=== PATIENT | female | born 1955 | race Caucasian/White ===

== ENCOUNTER 2025-03-01 12:58 | Outpatient (AMB) | payer MEDICARE, MEDICAID, SELFPAY ==
--- NOTE | 2025-03-01 13:09 | A.OFFVIS_ITS ---
Intake Visit Reasons: 2 month Allergies hydrochlorothiazide Allergy (Verified 02/24/25 19:20) Unknown Penicillins Allergy (Verified 02/24/25 19:20) Unknown sulfur dioxide Allergy (Verified 02/24/25 19:20) Unknown trazodone Allergy (Verified 02/24/25 19:20) Unknown Medication List - Last Reconciled 03/01/25 by Olayinka Chadwick MD aspirin 81 mg PO DAILY atorvastatin 40 mg PO DAILY calcium carbonate 600 mg PO Q12H ezetimibe 10 mg PO DAILY fluticasone propionate 50 mcg/actuation 2 sprays intranasal DAILY furosemide 20 mg PO DAILY memantine (Namenda) 5 mg PO ONCE 30 days metoprolol succinate ER 100 mg PO DAILY omeprazole 20 mg PO QAM potassium chloride ER 10 mEq PO DAILY sertraline 25 mg PO DAILY HPI Comments Details: 69 yo RH woman with HTN, HLD, depression, h/o alcohol abuse, and left breast cancer?is here for cognitive issues. She used to drink heavy amoun of beer until 2017 when it started to affect her liver and she stopped drinking it. Around same time, she was also treated for depression. Since then she has been forgetful. She was haivng nausea and abdominal discomfort with donepezil. She also saw an eye doctor and was diagnosed with cataract. [facility] Medical History (Updated 03/01/25 @ 13:17 by Olayinka Chadwick MD) Depression GERD (gastroesophageal reflux disease) Insomnia Hypertension HLD (hyperlipidemia) Alzheimer disease MCI (mild cognitive impairment) Anxiety Cerebral microvascular disease Migraine Encephalopathy Review of Systems Const Details: She is having nausea and abodminal discomfort Physical Exam Neuro Other: Mental Status: Alert and oriented to person, place, and time. Normal attention. Cranial Nerves: CN II: Visual ramos full to confrontation, visual acuity intact. CN III, IV, : Pupils equal, round, reactive to light and accommodation. Extraocular movements are normal. CN V: Facial sensation is normal. CN VII: Facial movements symmetrical. CN VIII: Hearing intact to bedside conversation is normal. CN IX, X: Palate elevates symmetrically. CN XI: Shoulder shrug and head turn symmetrical. CN XII: Tongue midline without atrophy or fasciculations. Coordination: Jkrinm-op-piaz and aoww-gd-uzox testing normal. No dysmetria. Gait and Station: With a walker Sensory: Intact to light touch, pinprick, and vibration. Romberg is negative. Extrapyramidal: Full facial expressions and blinking. No rigidity. Movements are appropriate with no tremor or abnormality. Speech: Normal; no dysarthria or tremor. Assessment & Plan Assessment & Plan (1) Alzheimer dementia: Code(s): G30.9 - Alzheimer's disease, unspecified; F02.80 - Dementia in other diseases classified elsewhere, unspecified severity, without behavioral disturbance, psychotic disturbance, mood disturbance, and anxiety Category: Medical Qualifiers: Alzheimer's disease onset: late onset Dementia severity: mild Dementia behavioral or psychological symptom: with anxiety Qualified Code(s): G30.1 - Alzheimer's disease with late onset; F02.A4 - Dementia in other diseases classified elsewhere, mild, with anxiety Plan Will DC donepezil due to side effects and start mematine. Medications: New memantine (Namenda) 5 mg PO ONCE 30 tabs 0RF 30 days Coding Level of Care Code Est Pt Level 4 (71706) Diagnoses Mild late onset Alzheimer's dementia with anxiety G30.1; F02.A4 Alzheimer's disease onset: late onset Dementia severity: mild Dementia behavioral or psychological symptom: with anxiety
--- OUTSIDE RECORDS SUMMARY | 2025-03-01 13:25 | XMS_ITS | Clinical Summary ---
Author Organization [facility] Address [address] [place] [address] Care Team Providers Care Storm Window Installer Name Role Phone Omaira Mix MD Primary Care Provider [phone] Allergies Active Allergy Reactions Criticality Noted Date Comments Trazodone 03/06/2022 Per pcp pre-op Irbesartan-Hydrochlorothiazide 03/06 Per pcp Penicillins 03/06/2022 Per pcp-preop Sulfa Antibiotics 03/06/2022 Per pcp pre-op Medications Medication Sig Dispensed Refills Start Date End Date Status metoprolol succinate (TOPROL-XL) 24 hr tablet 50 mg Take 50 mg by mouth daily. 0 Active fluticasone (FLONASE) 50 MCG/ACT nasal spray spray/apply 1 spray in each nostril daily. 0 Active omeprazole (PriLOSEC) 20 MG capsule Take 20 mg by mouth daily. 0 Active atorvastatin (LIPITOR) tablet 40 mg Take 40 mg by mouth daily. 0 Active Cholecalciferol 50 MCG (2000 UT) TABS Take by mouth. 0 Ac tive furosemide (LASIX) 20 MG tablet Take 20 mg by mouth 2 (two) times a day. 0 Active lactulose (CHRONULAC) 10 GM/15ML solution Take by mouth. 0 Acti ve mirtazapine (REMERON) 7.5 MG tablet Take 7.5 mg by mouth every night at bedtime. 0 Active potassium chloride ER (K-DUR,KLOR-CON) tablet 10 mEq Take 10 mEq by mouth 2 (two) times a day. 0 Active oxyCODONE (ROXICODONE) 5 MG immediate release tablet Take 1 tablet (5 mg total) by mouth every 8 (eight) hours as needed for pain. 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, estrogen receptor positive 08/09/2020 Family History Medical History Relation Name Comments Cancer Brother Cancer Father Cancer Mother Relation Name Status Comments Brother Father Mother Social History Tobacco Use Types Packs/Day Years Used Date Smoking Tobacco: Every Day Smokeless Tobacco: Never Tobacco Cessation:Ready to Q uit: Not Asked; Counseling Given: Not Answered Sex and Gender Information Value Date Recorded Sex Assigned at Not on file Gender Identity Not on file Sexual Orientation Not on file Job Start Date Occupation Industry Not on file Not on file Not on file Last Filed Vital Signs Vital Sign Reading Time Taken Comments Blood Pressure 154/72 10/18/2021 10:42 AM EST Pulse 57 10/18/2021 10:42 AM EST Temperature 36.9 C (98.4 F) 10/18/2021 10:42 AM EST Respiratory Rate - - Oxygen Saturation 100% 10/18/2021 10:42 AM EST Inhaled Oxygen Concentration - - Weight 66.7 kg (147 lb) 06/26/2022 2:13 PM EDT Height 172.7 cm (5' 8 ) 06/26/2022 2:13 PM EDT Body Mass Index 22.35 06/26/2022 2:13 PM EDT Plan of Treatment Health Maintenance Due Date Last Done Comments Hepatitis C Screening 1955 COVID-19 Vaccine (#1) 1960 Depression Screening 1967 Preventative Health Evaluation 1973 Tobacco Cessation Counseling 1973 Colon Cancer Screening (Colonoscopy) 2000 Breast Cancer Screening (Mammogram) 2005 Pneumococcal Vaccine (2 of 2 - PPSV23 or PCV20) 09/09/2015 07/15/2015 Fall Risk Assessment 2020 Osteoporosis Screening (DEXA Scan) 2020 Influenza Vaccine (#1) 2025 2, 06/27/2022, 07/04/2019, Additional history exists DTap / Tdap / Td (2 - Td or Tdap) 12/18/2027 12/17/2017, 07/05/2009, 07/05/2009 RSV Adult > 60+ Yrs or (1 - 1-dose 75+ series) 2030 Shingrix-Zoster Vaccine Completed 11/15/2022, 06/27 Hepatitis B Vaccines Aged Out No long er eligible based on patient's age to complete this topic RSV Ped < 20 months Aged Out No longe r eligible based on patient's age to complete this topic Care Teams Storm Window Installer Relationship Specialty Start Date End Date Omaira Mix MD PCP - General Internal Medicine 12/20/21
--- OUTSIDE RECORDS SUMMARY | 2025-03-01 13:26 | XMS_ITS | Continuity of Care Document ---
Author Organization [facility] [address] [place] [address] Phone [phone] Care Team Providers Care Paratransit Operator Name Role Phone Елена Mix M.D. Care Team Information Professor Of Counseling [phone] Problems Active Problems Provider Date Hypercholesterolemia Seymour Olivarez M.D. Onset : 06/18/2022 Osteoarthritis Seymour Olivarez M.D. Onset: Anxiety Seymour Olivarez M.D. Onset: Asymptomatic coronary heart disease Seymour acosta M.D. Onset: 06/18/2022 Hyperparathyroidism Seymour Olivarez M.D. Onset: 06/18/2022 Social History Type Date Description Comments Sex Female Sex Unknown ETOH Use Currently consumes alcohol Tobacco Use Start: Unknown End: Unknown Patient is a former smoker Allergies and adverse reactions Active Allergies Criticality Reaction Severity Comments Date Trazodone Unable to assess criticality 06/18/2022 Penicillin Unable to assess criticality 06/18/2022 Sulfamethoxazole Unable to assess criticality 06/18/2022 Hydrochlorothiazide Unable to assess criticality 06/18/2022 Medications Active Medications SIG Qnty Indications Order ing Provider Date Vitamin [id number] (1999 Ut) Chewtabs one qd Seymour Olivarez M.D. 06/19/2023 Calcium 600 High [id number] Tablets Seymour eid M.D. 06/19/2023 [id number] Tablets Take 1 tablet daily Unknown Potassium Chloride [id number] Tablets ER Take 1 Tablet (10 Meq Total) By Mouth 1 (One) Time Each Day DO Not Crush, Chew, Unknown Mirtazapine7.5mg Tablets Take 1 Tablet By Mouth Everyday AT Bedtime Елена Mix M.D. Atorvastatin Jkvhmuf87ef Tablets Take 1 Tablet By Mouth Every Day Unknown Metoprolol Succinate [id number] Tablets ER 24HR Take 1 Tablet By Mouth Every Day Unknown Rydjwgzluw84oi Tablets Take 1 tablet daily Naina Randall MD Ciclopirox8% Solution Apply To The Affected Toenails & Surrounding Area Daily. Remove With Alchohol Ev Елена Mix M.D. Miycpxsrjo74kw Capsules DR Take 1 Capsule By Mouth Every Morning (Before Breakfast) Naina Randall MD Fluticasone Zwrnoizytx33mtn/Act Suspension [place] 2 Sprays Into Each Nostril Every Day Елена Mix M.D. Vital Signs Date Vital Result Comment 06/19/2023 11:02am BP Systolic 132 mmHg BP Diastolic 60 mmHg Heart Rate 70 /min Height 68.5 inches 5'8.50 Weight 150.38 lb BMI (Body Mass Index) 22.5 kg/m2 Results Test Acquired Date Facility Test Result H/L Range N ote Calcium 06/14/2023 [facility] Calcium 9.3 mg/dL (8.6-10.5 ) 25Oh Vitamin D 06/14/2023 [facility] 25Oh Vitamin D 47.6 NG/ML (20-50) PTH, Intact 06/14/2023 [facility] PTH, Intact 63 pg/mL (15-65) 25Oh Vitamin D 12/20/2022 [facility] 25Oh Vitamin D 45.8 NG/ML (20-50) PTH, Intact 12/14/2022 [facility] PTH, Intact 85 pg/mL High (15-65) Basic Metabolic Panel 12/14/2022 [facility] Glucose 94 mg/dL (70-99) BUN 14 mg/dL (8-23) Creatinine 1.1 mg/dL High (0.5-1.0) Sodium 141 mmol/L (133-145) Potassium 4.2 mmol/L (3.6-5.2) Chloride 103 mmol/L (98-107) Bicarbonate 27 mmol/L (22-29) Anion Gap 11 (4-17) Calcium 9.7 mg/dL (8.6-10.5 ) Estimated GFR Creatinine 55 ML/MIN/1.7 3M2 1 Period & Volume 06/15/2022 [facility] Urine Collection Period 24 HRS Volume 2000 MLS Aasjh-Uw-Pqual 06/15/2022 [facility] Creatinine, Urine MG/DL 38.9 mg/dL Creatinine Ur GM/24HR 0.8 GM/24HR (0.72-1.5 ) Wevsukz-Zc-Teo nt 06/15/2022 [facility] Calcium, Urine, MG/DL 2.2 mg/dL Calcium, Urine GM/24HR 0.04 GM/24HR Low (0.05-0.3 0) PTH, Intact 06/13/2022 [facility] PTH, Intact 73 pg/mL High (15-65) Albumin 06/13/2022 [facility] Albumin 4.6 GM/DL (3.4-4.8) Calcium 06/13/2022 [facility] Calcium 9.6 mg/dL (8.6-10.5 ) 1 Creatinine based est imated glomerular filtration (eGFR) in adults is calculated using the [employer] recommended 2020 CKD-EPI equation. Estimates GFR from serum creatinine, age and sex. Medical Devices Description No Information Available Encounters Type Date Location Provider Dx Diagnosis Office Visit 06/19/2023 11:15a Main Office Seymour Olivarez M.D. I25.89 Other forms of chronic ischemic heart disease M19.90 Unspecified osteoart hritis, unspecified site E78.00 Pure hypercholestero lemia, unspecified Assessments Date Code Description Provider 06/19/2023 I25.89 Asymptomatic coronary heart disease Seymour Olivarez M.D. 06/19/2023 M19.90 Osteoarthritis Seymour schmidt M.D. 06/19/2023 E78.00 Hypercholesterolemia Seymour pastrana M.D. Plan of Treatment No Information Available Functional Status Description No Information Available Mental Status Description No Information Available Referrals Description No Information Available
--- OUTSIDE RECORDS SUMMARY | 2025-03-01 13:26 | XMS_ITS | Data Portability ---
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 Suggest excisional bx [email or web address] Not available 01/27/2024 13:53:30 03/16/2024 03/16/2024 No evidence of pre cancerous change. 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 Need to avoid cinnamon and artificial flavorings like sodium iman sulfate in toothpaste. I will prescribe some topical steroid paste to use when you have a flare up. 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 No discrete lesions are present today. She also notes intermittent issues with nasal crusting. She does saline twice a day which seems to have helped as there is no crusting or irritation today. 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 No discrete lesions are present today. She also notes intermittent issues with nasal crusting. She does saline twice a day which seems to have helped as there is no crusting or irritation today. She can do it up to 4 times daily and K-Y jelly in the nose at night pee Not available 10/19/2024 13:11:20 Plan of Treatment Reminders Order Date Submit Date Provider Last Modified By Organization Details Last Modified Time Details Appointments None recorded. Lab unlisted lab - JUAN+anca 2023 [place] [facility] (Centralized Electronic Ordering - All Locations), Patient Can Go To The Location Of Their Choice, [address] 16:08:58 Referral None recorded. Procedures None recorded. Surgeries excision, lesion of tongue (SURG) 2023 9 Not available 14:10:53 Imaging None recorded. Medication Orders triamcinolo ne acetonide 0.1 % dental paste 2023 [place] [id number], [address] [place], [address], 12:56:34 Patient TargetsNo targets recorded. Patient InstructionsNo instructions recorded. Reason for Referral None Reported. Results Created Date Observation Date Name Description Value Unit Range Abnormal Flag Note LastModifiedBy Organization Detail LastModifiedTime 06/17/2006/18/2024 JUAN+A NCA JUAN, serum 35 U/L 14-82 Not Available [facility] ([facility]) [address] [place], [address], 06/19/2024 16:08:58 06/17/2006/19/2024 JUAN+A NCA cytoplasmic (C-anca) <1:20 titer neg:<1 :20 Not Available [facility] ([facility]) [address] [place], [address], 06/19/2024 16:08:58 06/17/20 24 06/19/2024 JUAN+A NCA perinuclear (P-anca) <1:20 titer neg:<1 :20 The prese nce of posit rhianna fluor escen ce exhib iting P-ANC A or C-ANC A patte rns alone is not speci fic for the diagn osis of Wegen er's Granu lomat osis (WG) or micro scopi c polya ngiit is. Decis ions about treat ment shoul d not be based solel y on ANCA IFA resul ts. The Inter natio nal [employer] Conse nsus recom mends follo w up testi ng of posit rhianna sera with both WY-3 and MPO-A NCA enzym e immun oassa ys. As many as 5% serum sampl es are posit rhianna only by EIA. Ref. AM J Clin Patho l 1999; 111:5 07-51 3. Not Available [facility] ([facility]) [address] [facility], [place], [address], 06/19/2024 16:08:58 06/17/20 24 06/19/2024 JUAN+A NCA atypical panca <1:20 titer neg:<1 :20 The atypi taran pANCA patte rn has been obser mello in a signi fican t perce ntage of patie nts with ulcer ative colit is, prima ry scler osing chola ngiti s and autoi mmune hepat itis. Not Available [facility] ([facility]) [address] [place], [address], 06/19/2024 16:08:58 04/15/20 24 08/17/2019 imagi ng/di agnos tic resul t No observ ation record ed. [email or web address] Not Available 01:57:34 Result Notes None recorded. 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 506980169 Active 2017 Neoplasm of uncertain behavior of other specified sites of the oral cavity; Note: Date Diagnosed : 05/13/2018 10:41 AM (D37.09) Not Available [facility] 4 03:12:42 Chronic pharyngit is 013102 Active 2017 Chronic sore throat; Note: Date Diagnosed : 04/04/2018 3:07 PM (J31.2) Not Available [facility] 4 03:12:43 History of neoplasm 277871796 Active 2017 Personal history of other benign neoplasm; Note: Date Diagnosed : 07/02/2018 11:59 AM (Z86.018) Not Available [facility] 4 03:12:43 Tobacco user 048626269 Active 2017 Tobacco use; Note: Date Diagnosed : 07/02/2018 12:18 PM (Z72.0) Not Available [facility] 4 03:12:42 Lesion of oral mucosa 36035456087 64783 Active 2018 Other lesions of oral mucosa; Note: Date Diagnosed : 9 5:17 PM (K13.79) Not Available [facility] 4 03:12:42 Bilateral temporoma ndibular joint pain 93683572826 643783 Active 2019 Arthralgi a of bilateral temporoma ndibular joint; Note: Date Diagnosed : 08/03/2020 11:25 AM (M26.623) Not Available [facility] 4 03:12:44 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 939665328 Active 2017 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, unspecifi ed; Note: Date Diagnosed : 04/04/2018 4:56 PM (D37.9) Not Available [facility] 4 03:12:43 Neoplasm of uncertain behavior of tongue 07714744 Active 2023 NELIA ALARCON MD [address] [place] [address], [facility], [address] , [place] - [facility] 4 13:52:29 Leukoplak ia of tongue 43496356 Active 2023 NELIA ALARCON MD [address] [facility] [place] [address], [place], [address] , [place] - [facility] 4 13:52:35 Feeling of lump in throat 148489924 Active 2023 NELIA ALARCON MD [address] [facility],[place] [address], [place], [address] , [place] - [facility] 4 13:52:41 Oral lichen planus 758195266 Active 2023 MD Sanaz HILLIARD [facility],[place] [address], [place], [address] , [place] - [facility] 4 11:09:13 Chronic rhinitis 33876909 Active 2023 NELIA ALARCON MD [address] [facility],[place] [address], [place], [address] , [place] - [facility] 4 11:10:18 Deviated nasal septum 879195705 Active 2023 NELIA ALARCON MD [address] [facility],[place] [address], [place], [address] , [place] - [facility] 4 13:09:38 Oral lichenoid mucositis 418501725 Active 2023 NELIA ALARCON MD [address] [facility],[place] [address], [place], [address] , [place] - [facility] 4 13:09:49 Abnormal auditory perceptio n 42275896 Active 2024 NELIA ALARCON MD [address] [facility],[address], [place], [address] , [place] - [facility] 5 13:11:35 Problem Notes None recorded. Procedures Surgical History Date Name Laterality Status Provider Name and Address Organization Details Recorded Time 07/16/20 24 EXCISION, LESION OF TONGUE (SURG) completed Dank Brannon [place] - [facility] 03/13/2024 08:47:21 01/27/20 24 Fiberoptic Laryngoscopy (Comprehensive) completed NELIA BARRETT MD [address] [place] [address], [address], [place] - [facility] 01/27/2024 13:52:12 Imaging Results None recorded. Procedure Notes None recorded. Medical Equipment None Reported. Allergies Allergen ID Allergen Name Allergen Category Reaction Reaction Severity Criticality Documentation Date Start Date Code Code System Note Provider Name and Address Organization Details Recorded Time [id number] trazodone medicatio n other Not available Not available 01/07/2024 81455 RxNorm React ion: unkno wn, unspe cifie d;; Not Available [facility] 4 01:14:41 703601 hydrochlo rothiazid e medicatio n other Not available Not available 01/07/2024 5487 RxNorm React ion: unkno wn, unspe cifie d;; Not Available [facility] 4 01:14:42 919213 penicilli n V potassium medicatio n other Not available Not available 01/07/2024 36457 5 RxNorm React ion: unkno wn, unspe cifie d;; Not Available [facility] 4 01:14:43 596237 Substance with sulfonami de structure and antibacte rial mechanism of action (substanc e) medicatio n other Not available Not available 01/07/2024 95539 8003 SNOMED React ion: unkno wn, unspe cifie d;; Not Available [facility] 4 01:14:44 Medications Name Sig Start Date Stop Date Status Note LastModified by Organization Details LastModified Time atorvasta tin 40 mg tablet TAKE 1 TABLET BY MOUTH EVERY DAY active Not Available Not Available No t Available nicotine 14 mg/24 hr daily transderm al patch 10/09 completed Medicati on ID: [id number] D uration Value: 28 Reason: () Brand Name: nicotine Send Method: E-Prescr ibed Sub s Allowed: subs OK Speci al Instruct ion: APPLY 1 PATCH TO SKIN EVERY DAY Medi cationGe nericNam e: nicotine Not Available Not Available Not Available clindamyc in HCl 300 mg capsule TAKE 2 TABS ONE HOUR PRIOR TO DENTAL PROCEDUR E 06/17 completed Not Available Not Available Not Available azithromy debora 250 mg tablet TAKE 2 TABLETS BY MOUTH DAILY FOR 3 DAYS. 06/17 completed Not Available Not Available Not Available nystatin 100,000 unit/gram topical ointment APPLY TO AFFECTED AREA TWICE A DAY active Not Available Not Available No t Available ondansetr on HCl 4 mg tablet 06/17 completed Medicati on ID: [id number] B rand Name: ondanset cain HCl Send Method: E-Prescr ibed Sub s Allowed: subs OK Medic ationGen ericName : ondanset cain HCl Not Available Not Available Not Available metoprolo l succinate ER 100 mg tablet,ex tended release 24 hr TAKE 1 TABLET BY MOUTH EVERY DAY active Not Available Not Available No t Available potassium chloride ER 10 mEq tablet,ex tended release TAKE 1 TABLET (10 MEQ TOTAL) BY MOUTH 1 (ONE) TIME EACH DAY DO NOT CRUSH, CHEW, OR SPLIT. active Not Available Not Available No t Available aspirin 81 mg tablet,de layed release TAKE 1 TABLET BY MOUTH EVERY DAY active Not Available Not Available No t Available doxycycli ne monohydra te 100 mg tablet TAKE 1 TABLET BY MOUTH EVERY 12 HOURS FOR 7 DAYS 06/17 completed Not Available Not Available Not Available tramadol 50 mg tablet 1 tablet by mouth 06/17 completed Medicati on ID: [id number] D uration Value: 4 Prescri bed By Name: Milind Ruiz nd Name: tramadol Send Method: E-Prescr ibed Sub s Allowed: subs OK Medic ationGen ericName : tramadol Not Available Not Available Not Available acetamino phen 500 mg tablet TAKE 1 TABLET BY MOUTH EVERY 6 HOURS NEEDED FOR MILD PAIN (PAIN SCALE 1-3) 06/17 completed Not Available Not Available Not Available ciclopiro x 8 % topical solution 06/20 completed Medicati on ID: [id number] B rand Name: ciclopir ox Send Method: E-Prescr ibed Sub s Allowed: subs OK Medic ationGen ericName : ciclopir ox Not Available Not Available Not Available calcium 600 mg (as calcium carbonate 1,500 mg) tablet TAKE 1 TABLET BY MOUTH EVERY 12 HOURS active Not Available Not Available No t Available triamcino lone acetonide 0.1 % dental paste TAKE 1 APPLICAT ION EVERY DAY BY DENTAL ROUTE FOR 5 DAYS. 06/17 completed Not Available Not Available Not Available cephalexi n 500 mg capsule TAKE 1 CAPSULE BY MOUTH FOUR TIMES A DAY FOR 10 DAYS 06/17 completed Not Available Not Available Not Available ibuprofen 400 mg tablet TAKE 1 TABLET BY MOUTH EVERY 6 HOURS NEEDED FOR MODERATE PAIN (PAIN SCALE 4-6) 06/17 completed Not Available Not Available Not Available omeprazol e 20 mg capsule,d elayed release TAKE 1 CAPSULE BY MOUTH EVERY DAY IN THE MORNING BEFORE BREAKFAS T active Not Available Not Available No t Available Banophen 25 mg capsule 06/20 completed Medicati on ID: [id number] D uration Value: 30 Brand Name: Banophen Send Method: E-Prescr ibed Sub s Allowed: subs OK Speci al Instruct ion: TAKE 1 TABLET BY MOUTH AT BEDTIME NEEDED FOR ITCHING OR SLEEP. M edicakevan Rosaseneric Name: Banophen Not Available Not Available Not Available mupirocin 2 % topical ointment PLACE NICKEL THICK AMOUNT ON WOUND ONCE A DAY BEFORE DRESSING THE TOE WITH BANDAID active Not Available Not Available No t Available furosemid e 20 mg tablet TAKE 1 TABLET BY MOUTH EVERY DAY active Not Available Not Available No t Available albuterol sulfate HFA 90 mcg/actua tion aerosol inhaler INHALE 2 PUFFS INTO THE LUNGS EVERY 4 HOURS NEEDED FOR COUGH, WHEEZING OR SHORTNES S OF BREATH. active Not Available Not Available No t Available fluticaso ne propionat e 50 mcg/actua tion nasal spray,daniela pension SPRAY 2 SPRAYS BY NASAL ROUTE DAILY active Not Available Not Available No t Available ezetimibe 10 mg tablet TAKE 1 TABLET BY MOUTH EVERY DAY active Not Available Not Available No t Available Klor-Con M20 mEq tablet,ex tended release 06/20 completed Medicati on ID: [id number] D uration Value: 30 Brand Name: Klor-Con M20 Send Method: E-Prescr ibed Sub s Allowed: subs OK Speci al Instruct ion: TAKE 1 TABLET BY MOUTH ONCE A DAY Medi cationGe nericNam e: Klor-Con M20 Not Available Not Available Not Available mirtazapi ne 7.5 mg tablet TAKE 1 TABLET BY MOUTH EVERYDAY AT BEDTIME active Not Available Not Available No t Available lactulose 10 gram/15 mL oral solution TAKE 15 ML BY MOUTH DAILY active Not Available Not Available No t Available Chantix Continuin g Month Box 1 mg tablet 10/09 completed Medicati on ID: [id number] D uration Value: 28 Reason: () Brand Name: Chantix Continui ng Box Send Method: E-Prescr ibed Sub s Allowed: subs OK Medic ationGen ericName : Chantix Continui ng Box Not Available Not Available Not Available Vitals Date Recorded Body height Body mass index (BMI) Body weight Provider Name and Address Organization Details Last Updated DateTime 10/19/2024 172.72 cm 22 kg/m2 51695.89 g Obi Monique [place] - [facility] 10/19/2024 12:51:54 Date Recorded Body height Body mass index (BMI) Body weight Provider Name and Address Organization Details Last Updated DateTime 01/27/2024 172.72 cm 22.8 kg/m2 61536.86 g Gianluca Laura [place] - [facility] 01/27/2024 13:09:32 Date Recorded Body height Body mass index (BMI) Body weight Provider Name and Address Organization Details Last Updated DateTime 03/16/2024 172.72 cm 22.2 kg/m2 15234.49 g Gianluca Laura [place] - [facility] 03/16/2024 10:53:08 Date Recorded Body height Body weight Provider Name and Address Organization Details Last Updated DateTime 06/17/2024 172.72 cm 19973.89 g Mackenzie Key [place] [facility] 06/17/2024 12:55:28 Social History None recorded. Functional Status None recorded. Mental Status None recorded. Family History Nothing Reported. Medical History Condition Response Allergies/Hayfever Y Anxiety Y Cancer Y Depression Y High Cholesterol Y GERD/Reflux Y Sleep Disorder Y Gynecological HistoryNo gynecological history recorded. Obstetrics History GPAL:G 0 P 0 0 0 0 Past Encounters Encounter ID Performer Location Encounter Start Date Encounter Closed Date Diagnosis/Indication Diagnosis SNOMED-CT Code Diagnosis ICD10 Code Diagnosis Note [id number] NELIA ALARCON MD [facility] [address] [address] 01/27/2024 12:54:12 01/27/2024 14:01:47 Neoplasm of uncertain behavior of tongue 79264708 D37.02 Leukoplakia of tongue 91 827344 K13.21 Feeling of lump in throat 539041787 R09.89 [id number] NELIA ALARCON MD [facility] [address] [address] 03/16/2024 10:37:12 03/16/2024 11:14:51 Oral lichen planus 732689238 L43.8 Chronic rhinitis 8433208 6 J31.0 Use saline 3 times daily [id number] NELIA ALARCON MD [facility] [address] [address] 06/17/2024 12:46:18 06/17/2024 13:13:05 Deviated nasal septum 986201427 J34.2 Chronic rhinitis 3923374 6 J31.0 Use saline 3-4 times daily and KY jelly at night. Check vasculitis labs Oral liche noid mucositis 563609454 K12.39 [id number] NELIA ALARCON MD [facility] [address] [address] 10/19/2024 12:46:49 10/19/2024 13:15:49 Deviated nasal septum 541626886 J34.2 Chronic rhinitis 7532091 6 J31.0 Use saline 3-4 times daily and KY jelly at night. Oral liche noid mucositis 221931804 K12.39 Abnormal a uditory perception 91678359 H93.299 At this point I cannot explain why she has this popping sensation in her left ear when she taps the right occiput. I suspect this is some type of muscular or neurologic issue. Sometimes patients with migraine have hemicrania l cliffvit y. She will discuss this further with the neurologis t. She feels her hearing is fine but [facility] Health Concerns Section Related Observation LastModified by Organization Detai ls LastModified Time None Recorded Concern Status LastModified by Organization Details LastModified Time None Recorded Advance Directives Directive None Recorded Payers Insurance Date Sequence Insurance Name Policy Number Policy Delgado Covered Member ID Delgado Member ID Guarantor Name 10/14/2024 1 [place]ICARE B-[place]: [employer] Destinee Marroquin [id number] Destinee Marroquin 10/14/2024 2 [place] [facility] Destinee Marroquin [id number] Destinee Marroquin Notes Date Note Type Note Provider Name and Address Organization Details Recorded Time 01/27/2024 text/html hx of leukoplaki a and moid dysplasia left lateral tongue. Dentist concerned. Feel mucous in her throat. No otalgia. No weight loss NELIA BARRETT MD [address] [facility],[address], [address], [facility] 01/27/2024 13:55:56 03/16/2024 text/html path benign, Travis al irritation from ETT. Mouth healing NELIA BARRETT MD [address] [place] [address],[place] [address], [place], [address], [facility] 03/16/2024 11:14:13 06/17/2024 text/html Hx of lichenoid mucositis. She has been using preparations that do not have sodium lauryl sulfate and has been rinsing her mouth with baking soda and water. She does not have any discrete concerns about any areas in her mouth. She feels her nose is more congested and crusty. She has stopped using fluticasone nasal spray NELIA BARRETT MD [address] [facility],[address], [address], [facility] 06/17/2024 13:12:09 10/19/2024 text/html Reports long standing left ear sensitivity when she taps the right occiput. Has not mentioned this previously. Scheduled to see neurologist for this and memory problems. Feels combing hair causes popping in her ear. Hx of leukoplakia. no new lesionsStill smoking 08/29-08/27 ppd NELIA BARRETT MD [address] [facility],[place] [address], [place], [address], [place] - [facility] 10/19/2024 14:37:38 OBGyn Episode No OBEpisode recorded.
--- OUTSIDE RECORDS SUMMARY | 2025-03-01 13:26 | XMS_ITS | Clinical Summary ---
Author Organization [facility] Address [address] [facility] [address] [place] [address] Phone Care Team Providers Care Precipitator Supervisor Name Role Phone Omaira Mix MD Primary Care Provider [phone] Allergies Active Allergy Reactions Criticality Noted Date Comments Hydrochlorothiazide Other (see comments) 01/15/2021 Iodinated Contrast Media Other (see comments) 01/15/2021 Penicillin G 11/16/2021 Other reaction(s): HIVES SOB SWELLING Penicillins Other (see comments) 01/15/2021 Sulfa Antibiotics 12/19/2012 Other reaction(s): HIVES SOB SWELLING Trazodone Other (see comments) 01/15/2021 Medications aspirin (ST GEOVANNY) 81 MG EC tablet Take 1 tablet by mouth 1 (one) time each day Active atorvastatin (LIPITOR) 40 MG tablet Take 1 tablet by mouth 1 (one) time each day Active Cholecalciferol 50 MCG (2000 UT) capsule Take 1 capsule by mouth 1 (one) time each day Active furosemide (LASIX) 20 MG tablet 1 tablet 1 (one) time each day Active lactulose (CHRONULAC) 10 GM/15ML solution Take 0.5 oz by mouth Active mirtazapine (REMERON) 7.5 MG tablet Take 7.5 mg by mouth 1 (one) time each day in the evening 10/08/2020 Active omeprazole (PriLOSEC) [address] capsule Take 1 capsule by mouth 1 (one) time each day 03/15/2021 Active fluticasone (FLONASE) 50 MCG/ACT nasal spray SPRAY 2 SPRAYS INTO EACH NOSTRIL EVERY DAY 11/24/2020 Active ezetimibe (ZETIA) 10 MG tablet Take 10 mg by mouth 1 (one) time each day 10/30/2021 Active metoprolol succinate XL (TOPROL-XL) 100 MG 24 hr tablet 11/15/2021 Act rhianna potassium chloride 10 MEQ CR tablet TAKE 1 TABLET (10 MEQ TOTAL) BY MOUTH 1 (ONE) TIME EACH DAY DO NOT CRUSH, CHEW, OR SPLIT. 30 tablet 11 06/18/2024 5 Active Active Problems Problem Noted Date Diagnosed Date Chronic kidney disease, stage 2 (mild) 2 Hypertensive chronic kidney disease 07/05/2022 Diverticulosis of colon 11/16/2021 Abnormal findings on diagnostic imaging of breas t 11/16/2021 Acute nontraumatic kidney injury 01/15/2021 Stage 3a chronic kidney disease 01/15/2021 Edema 01/15/2021 Hypertensive disorder 01/15/2021 Hypervolemia 01/15/2021 Hypokalemia 01/15/2021 Hypomagnesemia 01/15/2021 Hyponatremia 01/15/2021 Tobacco dependence syndrome 01/15/2021 Malignant neoplasm of overlapping sites of breas t 08/09/2020 Overview (05/26/2024): Replacing diagnoses that were inactivated after the 05/26/24 Regulatory Import H/O: liver disease 04/30/2019 Alcohol abuse 02/21/2017 Hepatic encephalopathy 02/21/2017 Obese class I 07/03/2013 Old myocardial infarction 07/03/2013 Overview (11/16/2021): January 2009, [facility] in [place]. Dr Goins (sp?) Coronary arteriosclerosis 06/03/2013 Diverticular disease 06/03/2013 Mixed anxiety and depressive disorder 06/03/2013 Overview (11/16/2021): [facility]: Dr David Sandoval, psych. Daniela Barron, therapist Obstructive sleep apnea syndrome 06/03/2013 Overview (11/16/2021): On CPAP Right coronary artery occlusion 06/03/2013 Smoker 06/03/2013 Malignant tumor of breast 03/29/2011 Overview (11/16/2021): S/P left mastectomy 2010. Nncology: Dr. Armstrong . Surgeon: Invasive ductal carcinoma History of polyp of colon 09/29/2008 Hypercholesterolemia 02/10/2008 Resolved Problems Problem Noted Date Diagnosed Date Resolved Date Hypertensive chronic kidney disease stage 3 03/17/2021 07/05/2022 Encounters Date Type Department Care Team Description 02/15/2025 Orders Only [facility] [address] [facility] [address] [place] [address] Magdy Starkey MD Chronic kidney disease, stage 4 (severe) (HCC) (Primary Dx); Anemia in chronic kidney disease; Hyperkalemia; Hypertension from Last 3 Months Immunizations Immunization Administration Dates Next Due H1N1 Inj 08/23/2009 Influenza TIV (IM) 07/04/2019, 8,07/15/2015,09/25/2013 ,07/02/2011,08/23/2009 Influenza Whole 07/02/2011 Moderna SARS-COV-2 07/07/2021,12/09/2020, 021 Pneumococcal Conjugate 13-Valent 07/15/2015 Td 07/05/2009 Td, Unspecified 07/05/2009 Tdap 12/17/2017 Family History Medical History Relation Comments Cancer Father Kidney disease Father Cancer Mother Diabetes Mother Heart disease Mother Hypertension Mother Kidney disease Sibling Relation Status Comments Father Mother Sibling Social History Tobacco Use Types Packs/Day Years Used Date Smoking Tobacco: Every Day Cigarettes Started: 03/18/2020 Smokeless Tobacco: Never Tobacco Cessation:Counseling Given: No Alcohol Use Standard Drinks/Week Comments Yes 0 (1 standard drink = 0.6 oz pure alcohol) Alcoholic Drinks/day: 1-2 drinks per day Comments Unknown Sex and Gender Information Value Date Recorded Sex Assigned at Not on file Legal Sex Female 4:49 PM EST Gender Identity Not on file Sexual Orientation Not on file Last Filed Vital Signs Vital Sign Reading Time Taken Comments Blood Pressure 131/65 03/05/2024 1:38 PM EDT Pulse 74 03/05/2024 1:38 PM EDT Temperature - - Respiratory Rate - - Oxygen Saturation 98% 11/16/2021 1:42 PM EDT Inhaled Oxygen Concentration - - Weight 68.7 kg (151 lb 6.4 oz) 03/05/2024 1:38 P M EDT Height 174 cm (5' 8.5 ) 03/17/2021 10:46 AM EDT Body Mass Index 22.69 03/17/2021 10:46 AM EDT Plan of Treatment Upcoming Encounters Date Type Department Care Team (Late st Contact Info) Description 03/04/2025 1:30 PM EDT Office Visit [facility] [address] [place] [phone] Magdy Starkey MD [address] [phone] Health Maintenance Due Date Last Done Comments Breast Cancer Screening 1955 Colorectal Cancer Screening: Annual FOBT 2004 Colorectal Cancer Screening: Colonoscopy 2004 Colorectal Cancer Screening: Sigmoidoscopy 2004 Hepatitis B Vaccine (1 of 3 - Risk 3-dose series) 2015 Pneumococcal Vaccine: 50+ Ye ars (2 of 2 - PPSV23, PCV20, or PCV21) 09/09/2015 07/15/2015 Influenza Vaccine (#1) 2025 4, 06/11/2023, 06/27/2022, Additional history exists Pneumococcal Vaccine: Peds ( 0 to 5 Years) and At-Risk Patients (6 to 49 Years) Discontinued 07/15/2015 Procedures Procedure Name Priority Date/Time Associated Diagnosis Comments RENAL FUNCTION PANEL Routine 02/27/2025 8:22 AM EDT FERRITIN Routine 02/27/2025 8:22 AM EDT Chronic kidney disease, stage 4 (severe) (HCC) Anemia in chronic kidney disease Hyperkalemia Hypertension IRON PANEL (FE, TIBC, TSAT) Routine 02/27/2025 8:22 AM EDT Chronic kidney disease, stage 4 (severe) (HCC) Anemia in chronic kidney disease Hyperkalemia Hypertension CBC AND DIFFERENTIAL Routine 02/27/2025 8:22 AM EDT Chronic kidney disease, stage 4 (severe) (HCC) Anemia in chronic kidney disease Hyperkalemia Hypertension PROTEIN / CREATININE RATIO, URINE Routine 02/27/2025 8:22 AM EDT Chronic kidney disease, stage 4 (severe) (HCC) Anemia in chronic kidney disease Hyperkalemia Hypertension COMPREHENSIVE METABOLIC PANEL Routine 02/27/2025 8:22 AM EDT Chronic kidney disease, stage 4 (severe) (HCC) Anemia in chronic kidney disease Hyperkalemia Hypertension from Last 3 Months Results * Iron Panel (Fe, TIBC, TSAT) (02/27/2025 8:22 AM EDT) TIBC 343 250 - 450 ug/dL [facility] UIBC 264 118 - 369 ug/dL [facility] Iron 79 27 - 139 ug/dL [facility] Iron Saturation (TSat) 23 15 - 55 % [facility] Blood Venous blood / Unknown 02/27/2025 8:22 AM EDT 02/27/2025 us Magdy Starkey MD LAB BLOOD ORDERABLES Final Resu lt [facility] [address] [place] [address] * (ABNORMAL) Protein, Total, Random Urine w/Creatinine (Protein/Creat Ratio) (02/27/2025 8:22 AM EDT) Creatinine, Ur 33.9 Not Estab. mg/dL [facility] Protein, Ur 14.8 Not Estab. mg/dL [facility] Urine Protein/Creati nine Ratio 437(H) 0 - 200 mg/g creat [facility] Urine Urine specimen obtained by clean catch procedure / Unknown 02/27/2025 8:22 AM EDT 02/27/2025 us Magdy Starkey MD LAB URINE ORDERABLES Final Resu lt [facility] [address] [place] [address] * (ABNORMAL) CBC and Differential (02/27/2025 8:22 AM EDT) WBC 13.2(H) 3.4 - 10.8 x10E3/uL [facility] RBC 4.10 3.77 - 5.28 x10E6/uL [facility] Hemoglobin 12.8 11.1 - 15.9 g/dL [facility] Hematocrit 41.5 34.0 - 46.6 % [facility] MCV 101(H) 79 - 97 fL [facility] MCH 31.2 26.6 - 33.0 pg [facility] MCHC 30.8(L) 31.5 - 35.7 g/dL [facility] RDW 12.2 11.7 - 15.4 % [facility] Platelets 203 150 - 450 x10E3/uL [facility] Neutrophils Relative 81 Not Estab. % [facility] Lymphocytes Relative 15 Not Estab. % [facility] Monocytes 4 Not Estab. % [facility] Eosinophils Relative 0 Not Estab. % [facility] Basophils Relative 0 Not Estab. % [facility] Neutrophils Absolute 10.6(H) 1.4 - 7.0 x10E3/uL [facility] Lymphocytes Absolute 2.0 0.7 - 3.1 x10E3/uL [facility] Monocytes Absolute 0.5 0.1 - 0.9 x10E3/uL [facility] Eosinophils Absolute 0.0 0.0 - 0.4 x10E3/uL [facility] Basophils Absolute 0.0 0.0 - 0.2 x10E3/uL [facility] Immature Granulocytes 0 Not Estab. % [facility] Immature Grans (Absolute) 0.0 0.0 - 0.1 x10E3/uL [facility] Blood Venous blood / Unknown 02/27/2025 8:22 AM EDT 02/27/2025 Magdy Starkey MD LAB BLOOD ORDERABLES Final Resu lt [facility] [address] [place] [address] * Ferritin (02/27/2025 8:22 AM EDT) Ferritin 20 15 - 150 ng/mL [facility] Blood Venous blood / Unknown 02/27/2025 8:22 AM EDT 02/27/2025 Magdy Starkey MD LAB BLOOD ORDERABLES Final Resu lt [facility] [address] [place] [address] * Renal Function Panel (02/27/2025 8:22 AM EDT) Phosphorus 3.4 3.0 - 4.3 mg/dL [facility] 02/27/2025 8:22 AM EDT 02/27/2025 us Magdy Starkey MD LAB BLOOD ORDERABLES [facility] [address] [place] [address] * Comprehensive Metabolic Panel (02/27/2025 8:22 AM EDT) Glucose 93 70 - 99 mg/dL [facility] BUN 15 8 - 27 mg/dL [facility] Creatinine 0.97 0.57 - 1.00 mg/dL [facility] eGFR CKD-EPI CR 2020 63 >59 mL/min/1.7 3 [facility] BUN/Creatinine Ratio 15 12 - 28 [facility] Sodium 141 134 - 144 mmol/L [facility] Potassium 4.2 3.5 - 5.2 mmol/L [facility] Chloride 103 96 - 106 mmol/L [facility] Bicarbonate (CO2) 23 20 - 29 mmol/L [facility] Calcium 9.5 8.7 - 10.3 mg/dL [facility] Total Protein 6.3 6.0 - 8.5 g/dL [facility] Albumin 4.1 3.9 - 4.9 g/dL [facility] Globulin 2.2 1.5 - 4.5 g/dL [facility] Total Bilirubin 0.4 0.0 - 1.2 mg/dL [facility] Alkaline Phosphatase 72 44 - 121 IU/L [facility] AST (SGOT) 19 0 - 40 IU/L [facility] ALT (SGPT) 13 0 - 32 IU/L [facility] Blood Venous blood / Unknown 02/27/2025 8:22 AM EDT 02/27/2025 us Magdy Starkey MD LAB BLOOD ORDERABLES Final Resu lt [facility] [address] [place] [address] from Last 3 Months Insurance Medicare Medicaid [place] Care Teams Precipitator Supervisor Relationship Specialty Start Date End Date Omaira Mix MD PCP - General Internal Medicine 07/05/22
--- OUTSIDE RECORDS SUMMARY | 2025-03-01 13:26 | XMS_ITS | Encounter Summary ---
Author Organization [facility] Address [address] [facility] [address] h [address] [place] [id number] Care Team Providers Care Business Process Specialist Name Role Phone Ramona Quispe Unassigned Primary Care Provider U navailable Encounter Details Date Type Department Care Team (Latest Contact Info) Description 08/22/2020 Abstract [facility] CONVERSIONS Dental, Provider, DDS Social History Tobacco Use Types Packs/Day Years Used Date Smoking Tobacco: Never Assessed Comments Unknown Sex and Gender Information Value Date Recorded Sex Assigned at Female 06/25/2022 10:35 AM EDT Legal Sex Female 10:35 AM EDT Gender Identity Female 12/13/2022 10:43 AM EDT Sexual Orientation Choose not to disclose 2022 10:43 AM EDT documented as of this encounter Plan of Treatment Upcoming Encounters Date Type Department Care Team (Late st Contact Info) Description 04/21/2025 11:00 AM EDT Office Visit [facility] [address] [place] [address] Kayleigh Sun documented as of this encounter Visit Diagnoses Not on filedocumented in this encounter Care Teams Business Process Specialist Relationship Specialty Start Date End Date Ramona Quispe Unassigned PCP - General Family Medicine 12/24/22 documented as of this encounter
--- OUTSIDE RECORDS SUMMARY | 2025-03-01 13:26 | XMS_ITS | Clinical Summary ---
Author Organization [address] [place] [address] [place] [phone] Phone Care Team Providers Care In Home Baby Sitter Name Role Phone Omaira Mix MD Primary Care Provider Allergies Active Allergy Reactions Criticality Noted Date Comments Hydrochlorothiazide Other,Rash Low 12/19/2012 Other reaction(s): Other (see comments) Penicillins Other,Shortness of breath High 12/19/2012 Other Reaction(s): HIVES SOB SWELLING Per pcp-preop Other reaction(s): HIVES SOB SWELLING Other reaction(s): HIVES SOB SWELLING Per pcp-preop Sulfa (Sulfonamide Antibiotics) 12/19/2012 Other Reaction(s): HIVES SOB SWELLING Trazodone Other,Rash Low 12/19/2012 Per pcp pre-op Other reaction(s): Other (see comments) Per pcp pre-op Medications albuterol sulfate 90 mcg/actuation aerosol powdr breath activated Inhale by mouth if needed. 11/01/19 13 Active fluticasone propionate (FLONASE) 50 mcg/actuation nasal spray Administer 2 sprays into affected nostril(s) if needed. 11/19/19 24 Active calcium carbonate 1,500 mg (600 mg elemental calcium) tablet Take 1 tablet (1,500 mg total) by mouth 1 (one) time each day. 12/15/19 23 Active ibuprofen (ADVIL,MOTRIN) 400 mg tablet TAKE 1 TABLET BY MOUTH EVERY 6 HOURS NEEDED FOR MODERATE PAIN (PAIN SCALE 4-6) 05/22/20 23 Active acetaminophen (TYLENOL) 500 mg tablet TAKE 1 TABLET BY MOUTH EVERY 6 HOURS NEEDED FOR MILD PAIN (PAIN SCALE 1-3) 03/08/20 22 Active potassium chloride (KLOR-CON) 10 mEq CR tablet TAKE 1 TABLET (10 MEQ TOTAL) BY MOUTH 1 (ONE) TIME EACH DAY DO NOT CRUSH, CHEW, OR SPLIT. 07/03/20 22 Active cholecalcifero l (VITAMIN D-3) 50 mcg (2,000 unit) capsule Take 1 capsule (2,000 Units total) by mouth 1 (one) time each day. Active lactulose (CHRONULAC) solution TAKE 15 ML BY MOUTH DAILY 946 mL 6 07/13/20 24 Active atorvastatin (LIPITOR) 40 mg tablet TAKE 1 TABLET BY MOUTH EVERY DAY 90 tablet 1 09/22/19 25 Active furosemide (LASIX) 20 mg tablet TAKE 1 TABLET BY MOUTH EVERY DAY 90 tablet 1 10/08/19 25 Active omeprazole (PriLOSEC) [address] capsule TAKE 1 CAPSULE BY MOUTH EVERY DAY IN THE MORNING BEFORE BREAKFAST 30 capsule 5 11/04/19 25 Active mirtazapine (REMERON) 7.5 mg tablet TAKE 1 TABLET BY MOUTH EVERYDAY AT BEDTIME 30 tablet 5 12/01/19 25 Active aspirin 81 mg EC tablet TAKE 1 TABLET BY MOUTH EVERY DAY 30 tablet 5 12/22/19 25 Active metoprolol succinate (TOPROL-XL) 100 mg 24 hr tablet TAKE 1 TABLET BY MOUTH EVERY DAY 90 tablet 2 12/25/19 25 Active ezetimibe (ZETIA) 10 mg tablet TAKE 1 TABLET BY MOUTH EVERY DAY 90 tablet 3 02/05/20 25 Active ezetimibe (ZETIA) 10 mg tablet TAKE 1 TABLET BY MOUTH EVERY DAY 30 tablet 5 08/17/20 24 025 Discontinued Active Problems Problem Noted Date Diagnosed Date Asthma with COPD ([facility] V24, [facility] V28) 04/27 Venous insufficiency 08/08/2023 Assessment & Plan (09/02/2024 1:14 PM EST): Continue low-dose Lasix along with other behavioral strategies including elevation of legs while supine, consideration of compression stockings as tolerated, low- sodium diet-overall reasonably controlled (HFpEF) heart failure with p reserved ejection fraction ([facility] V24, [facility] V28) 08/08/2023 Overview (09/14/2024): -Triggered by alcohol most likely - reportedly alcholol free for 5 years. Assessment & Plan (09/02/2024 1:14 PM EST): Clinically euvolemic on exam without recent heart failure hospitalizations. Osteopenia 09/13/2022 CKD (chronic kidney disease) stage 3, GFR 30-59 ml/min ([facility] V24, [facility] V28) 09/06/2022 Asymptomatic coronary heart disease 06/18/2022 Overview (09/02/2024): -Status post ST elevation [place] in 2008 with bare-metal stent to the RCA -Nuclear stress test from -2021 revealing for infarction but no areas of ischemia were noted. -Echocardiogram performed on 11/28/2021 showed no WMA's with an EF of 55 to 60% with no significant valve disease was noted. Assessment & Plan (09/02/2024 1:14 PM EST): No recurrent anginal symptoms whatsoever. I encouraged her to try to get more regular aerobic exercise when her foot troubles have healed. I suggested she try recumbent bike to start and try to graduate to standing exercise bike. This may be easier on her feet. 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 She will plan on doing this. Continue atorvastatin 40 mg at bedtime, baby aspirin. Osteoarthritis 06/18/2022 Anxiety 06/18/2022 Hyperparathyroidism ([facility] V24) 06/18/2022 PVC (premature ventricular contraction) 11/23/19 Overview (05/26/2024): -Holter monitor in July 2021 showing a 32% burden over 24 hours -We were only able to get it down to 25% burden on repeat Holter in September 2021 with beta-carlos therapy -status post PVC ablation on January 25, 2022 for ongoing symptoms of fatigue and palpitations, mapped to the septal portion of the RVOT, roughly 2 cm below the pulmonary valve. Following ablation unable to induce, no further PVCs - Repeat Holter monitor on 02/23/2022 showed PVC burden of only 0.2% Last Assessment & Plan: No recent recurrence of palpitations status post ablation, at this point, she is on a high dose of metoprolol not necessarily for PVCs but for a history of CAD and for blood pressure control-it is working for her so even though it is not technically a first-line agent, I would hate to rock the boat at this point and she is in agreement with this plan, continue current metoprolol 100 mg daily Diverticulosis 11/16/2021 Cirrhosis (CMS/HCC V24, CMS/HCC V28) 04/19/2017 Alcohol abuse 02/21/2017 Obstructive sleep apnea syndrome 06/03/2013 Overview (05/26/2024): UNTREATED (Aug 2022) Smoker 06/03/2013 Assessment & Plan (09/02/2024 1:14 PM EST): We discussed strategies to help her quit smoking. She believes that once she fully decides that she is going to stop, she will just be able to do it. I did inquire about assistance aids and she is considering the nicotine patch. She will think about it some more and get back to me. Mixed anxiety and depressive disorder 06/03/2013 Overview (05/26/2024): [facility]: Dr David Sandoval, psych. Daniela Barron, therapist Hypertension 02/10/2008 Overview (09/02/2024): Assessment & Plan (09/02/2024 1:14 PM EST): Well-controlled on current regimen of furosemide 20 mg daily, metoprolol 100 mg daily, continue Hypercholesterolemia 02/10/2008 History of breast cancer Overview (09/21/2024): left mastectomy 2010 Resolved Problems Problem Noted Date Diagnosed Date Resolved Date Hepatic encephalopathy (CMS/ HCC V24, CMS/HCC V28) 02/21/2017 09/21/2024 Old myocardial infarction 07/03/2013 Overview (05/26/2024): January 2009, [facility] in [place]. Dr Goins (sp?) Malignant tumor of breast ([facility] MS/HCC V24, CMS/HCC V28) 03/29/2011 09/21/2024 Overview (05/26/2024): S/P left mastectomy 2010. Nncology: Dr. Armstrong . Surgeon: Invasive ductal carcinoma Encounters Date Type Department Care Team Description 02/11/2025 Telephone Lung Screening Program - [place] [address] [facility] [address] [place] [phone] Hafsa Cabezas [place] Appointment (1st notification) 12/31/2024 Telephone Gastroenterology - [place] [address] [facility] [address] [facility] [address] [place] [phone] Maria Teresa Ureña NP provider call back 12/31/2024 Telephone [facility] 154 [address] [facility] [address] [place] [phone] Bobbi Salcido MD Medication 12/14/2024 Telephone Adult Medicine [address] [phone] Omaira Mix MD Advice Only 12/02/2024 1:39 PM EDT - 12/02/2024 11:59 PM EDT Hospital Encounter [facility] MRI [address] [place] [phone] Encephalopathy, unspecified Discharge Disposition: Home or Self Care from Last 3 Months Immunizations Name Administration Dates Next Due COVID-19 (Moderna/Spikevax) 12yo and older 06/11/2023 H1N1 All Forms 08/23/2009 Influenza Quadravalent, MDCK , 0.5ml, preservative free (Flucelvax) 6mo and older 06/27/2022 Influenza Whole 07/02/2011 Influenza trivalent, 0.5mL ( Fluad) 65yo and older 06/11/2023 Influenza trivalent, 0.5mL ( Fluzone High-dose) 65yo and older 06/19/2024 Influenza trivalent, with preservative (Fluzone; Afluria) 6mo and older 07/04/2019,09/17/2017,07/15/2015,2013,08/23/2009 Pfizer (ages 12 & older) Biv alent, COVID-19 07/18/2022 Pneumococcal conjugate 13 va lent (Prevnar 13, PCV13) 2mo and older 07/15/2015 Td, Unspecified 07/05/2009 Tdap Tetanus diptheria acell ular pertussis (Boostrix; Adacel) 7yo and older 12/17/2017 Zoster recombinant (Shingrix ) 19yo and older 11/15/2022,08/22/2022,06/27/2022 Surgical History Surgery Date Site/Laterality Comments MASTECTOMY left (2010), lymph nodes neg OTHER SURGICAL HISTORY 05/13/2018 Micro direct laryngoscopy with telescope, excision of palatal lesion with closure, excision of palatal lesion without closure. COLONOSCOPY 12/06/2021 : tiny tubular adenoma and diverticulosis ESOPHAGOGASTRODUODENOSCOPY 12/06/2021 : normal Medical History Medical History Date Comments HTN (hypertension) DX:HTN (hyper tension) Hypercholesteremia Anxiety and depression Esophageal reflux History of left breast cancer 2009 : ER/VA negative Diverticulosis Cirrhosis of liver ([facility] V24, [facility] V28) Osteopenia 09/13/2022 Asthma with COPD ([facility] V2 4, [facility] V28) 05/15/2024 Hyperparathyroidism ([facility] V24) 06/18/2022 CKD (chronic kidney disease) stage 3, GFR 30-59 ml/min ([facility] V24, [facility] V28) 09/06/2022 Obstructive sleep apnea syndrome 06/03/2013 UNTREATED (Aug 2022) Alcohol abuse 02/21/2017 Asymptomatic coronary heart disease 06/18/2022 -Status post ST elevation VT in 2008 with bare-metal stent to the RCA-Nuclear stress test from -2021 revealing for infarction but no areas of ischemia were noted. -Echocardiogram performed on 11/28/2021 showed no WMA's with an EF of 55 to 60% with no significant valve disease was noted. PVC (premature ventricular contraction) 11/23/19 22 -Holter monitor in July 2021 showing a 32% burden over 24 hours -We were only able to get it down to 25% burden on repeat Holter in September 2021 with beta-carlos therapy -status post PVC ablation on January 25, 2022 for ongoing symptoms of fatigue and palpitations, mapped to the septal portion of the RVOT, roughly 2 cm below the pulmonary valve. Following ablation unable to induce, no fu Venous insufficiency 08/08/2023 (HFpEF) heart failure with p reserved ejection fraction (CMS/HCC V24, CMS/HCC V28) 08/08/2023 -Triggered by alcohol most l ikely - reportedly alcholol free for 5 years. History of breast cancer left ma stectomy 2010; right breast lumpectomy 2022 Family History Medical History Relation Name Comments Cancer Brother 1 Schizophrenia Brother 2 Heart attack Brother 3 Cancer Father Other: kaposi sarcoma Father's side Breast cancer Mother [place] Colon cancer Neg Hx Ovarian cancer Neg Hx Uterine cancer Neg Hx Relation Name Status Comments Brother 1 Brother 2 Alive Brother 3 Alive Father Father's side Maternal Grandfather unknown Maternal Grandmother unknown Mother Paternal Grandfather unknown Paternal Grandmother unknown Social History Tobacco Use Types Packs/Day Years Used Date Smoking Tobacco: Every Day Cigarettes Smokeless Tobacco: Never Tobacco Cessation:Ready to Q uit: Not Asked; Counseling Given: Not Answered Comments:Smokes about 6 6-10 cigarettes daily Alcohol Use Standard Drinks/Week Comments No 0 (1 standard drink = 0.6 oz pur e alcohol) Comments Unknown Sex and Gender Information Value Date Recorded Sex Assigned at Not on file Legal Sex Female 1:45 PM EST Gender Identity Not on file Sexual Orientation Not on file Obstetrics History Last Filed Vital Signs Vital Sign Reading Time Taken Comments Blood Pressure 124/64 09/28/2024 1:06 PM EST Pulse 67 09/28/2024 1:06 PM EST Temperature 35.6 C (96.1 F) 09/21/2024 12:51 PM EST Respiratory Rate 16 09/21/2024 12:51 PM EST Oxygen Saturation 99% 09/21/2024 12:51 PM EST Inhaled Oxygen Concentration - - Weight 65.6 kg (144 lb 9.6 oz) 09/28/2024 1:06 P M EST Height 174 cm (5' 8.5 ) 09/28/2024 1:06 PM EST Body Mass Index 21.67 09/28/2024 1:06 PM EST Plan of Treatment Upcoming Encounters Date Type Department Care Team (Late st Contact Info) Description 03/06/2025 8:00 AM EDT Appointment [facility] CT Scan [address] [place] [phone] 03/22/2025 1:00 PM EDT Office Visit Adult Medicine [facility] [address] [place] [phone] Tiara Muller PA [address] [place] [address] 03/26/2025 10:20 AM EDT Office Visit [facility] [address] [facility] [address] [place] [phone] Bobbi Salcido MD [address] [place] [address] 03/30/2025 1:00 PM EDT Office Visit Gastroenterology - [place] [facility] [address] [phone] Maria Teresa Ureña, ALDO [address] [phone] 06/08/2025 1:00 PM EDT Office Visit [facility] [place] [address] [phone] Nerissa Saleh MD [address] [place] [address] Health Maintenance Due Date Last Done Comments Hepatitis A Vaccines (1 of 2 - Risk 2-dose series) 1974 Hepatitis B Vaccines (1 of 3 - Risk 3-dose series) 2015 RSV Immunization Adult Patients (1 - Risk 60-74 years 1-dose series) 2015 Pneumococcal Vaccine: 50+ Years (2 of 2 - PPSV23) 09/09/2015 07/15/2015 Medicare Annual Wellness Visit 08/03/2022 Social Influencers of Health Screening 08/03/2022 Falls Risk Assessment 09/16/2024 09/16/2023 COVID-19 Vaccine (7 - Moderna risk season) 2024 06/19/2024, 06/11/2023, 07/18/2022, Additional history exists Depression Screening 03/19/2025 03/19/2024 Influenza Vaccine (#1) 2025 , 06/11/2023, 06/27/2022, Additional history exists Hypertension/CHF/CAD Annual BMP Blood Test 09/21/2025 09/21/2024, 04/02/2024 Breast Cancer Screening 12/16/2025 12/17/19, 07/18/2019, 07/12/2018, Additional history exists Colorectal Cancer Screening: Colonoscopy 12/06/2026 12/06/2021 DTaP,Tdap,and Td Vaccines (3 - Td or Tdap) 12/18/2027 12/17/2017, 07/05/2009 Cholesterol Screening (Lipid Panel) 09/21/2029 09/21/2024, 04/02/2024 Osteoporosis Screening (Bone Density Screening) 09/13/2032 09/13/2022 Hepatitis C Screening Completed 02/08/2017 Zoster Vaccines Completed 11/15/2022, 07/27, 06/27/2022 HIB Vaccines Aged Out No longer eligi ble based on patient's age to complete this topic HPV Vaccines Aged Out No longer eligi ble based on patient's age to complete this topic IPV Vaccines Aged Out No longer eligi ble based on patient's age to complete this topic MMR Vaccines Aged Out No longer eligi ble based on patient's age to complete this topic Meningococcal ACWY Vaccine Aged Out N o longer eligible based on patient's age to complete this topic Meningococcal B Vaccine Aged Out No l onger eligible based on patient's age to complete this topic RSV Immunization Patients Under 20 months Aged Out No longer eligible based on patient's age to complete this topic Varicella Vaccines Aged Out No longer eligible based on patient's age to complete this topic Procedures Procedure Name Priority Date/Time Associated Diagnosis Comments MR BRAIN WO CONTRAST Routine 12/02/2024 2:24 PM EDT Encephalopathy, unspecified COMPREHENSIVE METABOLIC PANEL Routine 09/21/2024 1:31 PM EST Stage 3 chronic kidney disease, unspecified whether stage 3a or 3b CKD (CMS/HCC V24, CMS/HCC V28) Cirrhosis of liver without ascites, unspecified hepatic cirrhosis type (CMS/HCC V24, CMS/HCC V28) LIPID PANEL WITH REFLEX TO DIRECT LDL Routine 09/21/2024 1:31 PM EST Hypercholesterolemia JANENE DEXA AXIAL SKELETON Routine 09/13/2022 1:35 PM EST Encounter for screening for osteoporosis SCR MAMMO BI INCL CAD Routine 07/18/2019 11:38 AM EST Encounter for screening mammogram for malignant neoplasm of breast from Last 3 Months or Most Recently Relevant to Health Maintenance Results * MR Brain wo Contrast (12/02/2024 2:24 PM EDT) Anatomical Region Laterality Modality Head and Neck Magnetic Resonan ce 12/02/2024 2:50 PM EDT Impressions 12/02/2024 3:22 PM EDT No acute intracranial findings. -------- FINAL REPORT -------- Dictated By: Jhonathan Salcido Dictated Date: 12/02/2024 14:50 ET Assigned Physician: Jhonathan Salcido Reviewed and Electronically Signed By: Jhonathan Salcido Signed Date: 12/02/2024 15:22 ET Workstation ID: [id number] Transcribed By: Self Edit Transcribed Date: 12/02/2024 14:50 ET Narrative 12/02/2024 3:22 PM EDT PROCEDURE: Noncontrast MRI of the brain. HISTORY: ENCEPHALOPATHY. COMPARISON: None. TECHNIQUE: Multiplanar multisequence MRI of the brain without intravenous contrast administration. FINDINGS: BRAIN: No diffusion abnormality. No mass or extra-axial fluid collection. No hydrocephalus. The major intracranial flow voids are preserved. Age commensurate ventricles and sulci. Scattered foci of T2 prolongation in the supratentorial white matter and patchy T2 bobby, suggestive of mild chronic microvascular ischemic disease. ORBITS: Normal. SINUSES/MASTOIDS: Normal. CALVARIUM: Normal. OTHER: The visualized skull base soft tissues are normal. Partially visible mild degenerative changes of the cervical spine. Procedure Note Jhonathan Salcido MD - 12/02/2024 PROCEDURE: Noncontrast MRI of the brain. HISTORY: ENCEPHALOPATHY. COMPARISON: None. TECHNIQUE: Multiplanar multisequence MRI of the brain without intravenouscontrast administration. FINDINGS: BRAIN: No diffusion abnormality. No mass or extra-axial fluid collection.No hydrocephalus. The major intracranial flow voids are preserved. Agecommensurate ventricles and sulci. Scattered foci of T2 prolongation inthe supratentorial white matter and patchy T2 bobby, suggestive of mildchronic microvascular ischemic disease. ORBITS: Normal. SINUSES/MASTOIDS: Normal. CALVARIUM: Normal. OTHER: The visualized skull base soft tissues are normal. Partiallyvisible mild degenerative changes of the cervical spine. IMPRESSION: No acute intracranial findings. -------- FINAL REPORT -------- Dictated By: Jhonathan Salcido Dictated Date: 12/02/2024 14:50 ET Assigned Physician: Jhonathan Salcido Reviewed and Electronically Signed By: Jhonathan Salcido Signed Date: 12/02/2024 15:22 ET Workstation ID: [id number] Transcribed By: Self Edit Transcribed Date: 12/02/2024 14:50 ET Olayinka Chadwick MD [facility] [place]ED[place] Final Re sult * Lipid panel with reflex to direct LDL (09/21/2024 1:31 PM EST) Cholesterol 134 0 - 200 mg/dL LAB CHEMISTRY METHOD 09/21/2024 5:44 PM EST [facility] Triglycerides 74 0 - 150 mg/dL LAB CHEMISTRY METHOD 09/21/2024 5:44 PM EST [facility] HDL 51 >=40 mg/dL LAB CHEMISTRY METHOD 09/21/2024 5:44 PM EST [facility] LDL Calculated 68 0 - 100 mg/dL LAB CHEMISTRY METHOD 09/21/2024 5:44 PM EST [facility] VLDL Cholesterol Bruno 14.8 mg/dL LAB CHEMISTRY METHOD 09/21/2024 5:44 PM [facility] Non HDL Chol. (LDL+VLDL) 83 <145 mg/dL LAB CHEMISTRY METHOD 09/21/2024 5:44 PM [facility] Chol/HDL Ratio 2.6 0.0 - 4.4 LAB CHEMISTRY METHOD 09/21/2024 5:44 PM [facility] Blood Venous blood specimen / Unknown Venipuncture / Unknown 09/21/2024 1:31 PM EST 09/21/2024 1:31 PM EST us Omaira Mix MD LAB BLOOD ORDERABLES Final Resul t [facility] [address] [place] [address], * (ABNORMAL) Comprehensive metabolic panel (09/21/2024 1:31 PM EST) Sodium 136 133 - 145 mmol/L LAB CHEMISTRY METHOD 09/21/2024 5:44 PM [facility] Potassium 4.2 3.5 - 5.5 mmol/L LAB CHEMISTRY METHOD 09/21/2024 5:44 PM [facility] Chloride 99 96 - 110 mmol/L LAB CHEMISTRY METHOD 09/21/2024 5:44 PM [facility] CO2 30 21 - 32 mmol/L LAB CHEMISTRY METHOD 09/21/2024 5:44 PM [facility] Anion Gap 7 3 - 11 LAB CHEMISTRY METHOD 09/21/2024 5:44 PM [facility] Glucose 103(H) 70 - 100 mg/dL LAB CHEMISTRY METHOD 09/21/2024 5:44 PM [facility] BUN 12 5 - 25 mg/dL LAB CHEMISTRY METHOD 09/21/2024 5:44 PM [facility] Creatinine 1.01 0.50 - 1.10 mg/dL LAB CHEMISTRY METHOD 09/21/2024 5:44 PM [facility] eGFR 60 >=60 mL/min/1. 73m2 LAB CHEMISTRY METHOD 09/21/2024 5:44 PM [facility] Comment:Calculation based on the Chronic Kidney Disease Epidemiology Collaboration (CKD-EPI) equation refit without adjustment for race. BUN/Creatinine Ratio 11.9 LAB CHEMISTRY METHOD 09/21/2024 5:44 PM [facility] Calcium 9.9 8.5 - 10.5 mg/dL LAB CHEMISTRY METHOD 09/21/2024 5:44 PM [facility] AST (SGOT) 20 10 - 42 unit/L LAB CHEMISTRY METHOD 09/21/2024 5:44 PM [facility] ALT (SGPT) 27 10 - 60 unit/L LAB CHEMISTRY METHOD 09/21/2024 5:44 PM [facility] Alkaline Phosphatase 80 42 - 121 unit/L LAB CHEMISTRY METHOD 09/21/2024 5:44 PM [facility] Total Protein 7.4 6.0 - 8.0 g/dL LAB CHEMISTRY METHOD 09/21/2024 5:44 PM [facility] Albumin 4.2 3.2 - 5.0 g/dL LAB CHEMISTRY METHOD 09/21/2024 5:44 PM [facility] Total Bilirubin 0.4 0.0 - 1.4 mg/dL LAB CHEMISTRY METHOD 09/21/2024 5:44 PM [facility] Blood Venous blood specimen / Unknown Venipuncture / Unknown 09/21/2024 1:31 PM EST 09/21/2024 1:31 PM EST us Omaira Mix MD LAB BLOOD ORDERABLES Final Resul t [facility] [address] [place] [address], * JANENE DEXA AXIAL SKELETON (09/13/2022 1:35 PM EST) Anatomical Region Laterality Modality Mammography 09/13/2022 12:5 7 PM EST Narrative 09/13/2022 1:35 PM EST [facility] Diagnostic Imaging Department [address] [place] [address] Patient: ANIBALSOLOMON D.O.B./Age/Sex: 1955 - 67 - F Unit#: [id number] Location/Status: SPDIMA/REG CLI Mnemonic/Ordering Site: [facility]AMDEXAAX/SPMAM Ordering Physician: TIARA MULLER PA-C [facility] Dexa Axial Skeleton - 09/13/22 - 1329 History: Low estrogen state due to menopause. History of breast carcinoma. Left total hip arthroplasty February,. Findings: Bone densitometry is performed utilizing dual energy x-ray absorptiometry (DXA) in the [employer] Player unit. The lumbar spine and right proximal femur are evalu ated in the AP projection. The FRAX questionaire was completed. The results indicate low bone mass (osteopenia), with a right femoral neck T- score of -1.3. The Z score is 0.2, indicating bone mineral density within the range of normal for age. The detailed DEXA report will be mailed to the referring physician's office. DualFemur FRAX: 10-year Probability of Fracture: Major Osteoporotic 9.0 percent Hip 1.0 percent. IMPRESSION: Osteopenia. [id number] Dictating Physician: TARI CRISOSTOMO MD Electronically Signed by: TARI CRISOSTOMO MD Dic Date/Time: 09/13/22 1333 Sign date/Time: 09/13/22 1335 Procedure Note Tari Crisostomo MD - 09/27/2023 [facility] Diagnostic Imaging Department [address] [place], [place] [id number] Patient: SOLOMON MARROQUIN /Age/Sex: 1955 - 67 - F Unit#: [id number] [facility] Ordering Physician: TIARA MULLER PA-C [facility] Dexa Axial Skeleton - 09/13/22 - 1329 History: Low estrogen state due to menopause. History of breast carcinoma.Left total hip arthroplasty February,. Findings: Bone densitometry is performed utilizing dual energy x-ray absorptiometry(DXA) in the [employer] unit. The lumbar spine and right proximal femur areevalu ated in the AP projection. The FRAX questionaire was completed. The results indicate low bone mass (osteopenia), with a right femoral neckT- score of -1.3. The Z score is 0.2, indicating bone mineral density withinthe range of normal for age. The detailed DEXA report will be mailed to the referring physician's office. DualFemur FRAX: 10-year Probability of Fracture: Major Osteoporotic 9.0percent Hip 1.0 percent. IMPRESSION: Osteopenia. [id number] Dictating Physician: TARI CRISOSTOMO MD Electronically Signed by: TARI CRISOSTOMO MD Dic Date/Time: 09/13/22 133 Sign date/Time: 09/13/22 5624 Tiara PORTILLO IMG BI PROCEDURES Final Resul t * SCR MAMMO BI INCL CAD (07/18/2019 11:38 AM EST) Anatomical Region Laterality Modality Radiographic Rylie ging 07/12/2018 12:2 4 PM EST Narrative 07/20/2019 9:36 AM EST This is a summary report. The complete report is available in the patient's medical record. If you cannot access the medical record, please contact the sending organization for a detailed fax or copy. Exam: Screening mammogram Findings: Digital unilateral right full-field screening mammography is performed and interpreted with the aid of computer-aided detection. Comparison is made with 07/12/2018 and as far back as 04/10/2013. History of left breast carcinoma status post mastectomy. Breast parenchyma is composed of scattered fibroglandular densities. No new suspicious mass, architectural distortion, or suspicious calcifications. Impression: No mammographic evidence of malignancy. BI-RADS 1 - negative 5 year breast cancer risk assessment N/A Lifetime breast cancer risk assessment N/A Breast cancer risk category Breast cancer risk not assessed Procedure Note Radha Celis MD - 08/14/2022 This is a summary report. The complete report is available in thepatient's medical record. If you cannot access the medical record, pleasecontact the sending organization for a detailed fax or copy. Exam: Screening mammogram Findings: Digital unilateral right full-field screening mammography isperformed and interpreted with the aid of computer-aided detection.Comparison is made with 07/12/2018 and as far back as 04/10/2013. Historyof left breast carcinoma status post mastectomy. Breast parenchyma is composed of scattered fibroglandular densities. Nonew suspicious mass, architectural distortion, or suspiciouscalcifications. Impression: No mammographic evidence of malignancy. BI-RADS 1 - negative 5 year breast cancer risk assessment N/A Lifetime breast cancer risk assessment N/A Breast cancer risk category Breast cancer risk not assessed Gifty Washburn MD IMG XR PROCEDURES Final Result from Last 3 Months or Most Recently Relevant to Health Maintenance Insurance MEDICA[place] - [place] MEDICARE Advance Directives Documents on File Type Date Recorded Patient E Commerce Director Expl anation Health Care Decision (hx) 05/23/2023 AD LANGLEY DIRECTIVE Health Care Decision (hx) 05/23/2023 AD LANGLEY DIRECTIVE Health Care Decision (hx) 05/23/2023 AD LANGLEY DIRECTIVE Health Care Decision (hx) 05/23/2023 AD LANGLEY DIRECTIVE Health Care Decision (hx) 05/22/2023 HE ALTH CARE PROXY Health Care Decision (hx) 05/22/2023 HE ALTH CARE PROXY Health Care Decision (hx) 05/22/2023 HE ALTH CARE PROXY Health Care Decision (hx) 05/22/2023 HE ALTH CARE PROXY Health Care Decision (hx) 03/13/2022 AD LANGLEY DIRECTIVE Health Care Decision (hx) 03/13/2022 AD LANGLEY DIRECTIVE Health Care Decision (hx) 03/13/2022 AD LANGLEY DIRECTIVE Health Care Decision (hx) 03/13/2022 AD LANGLEY DIRECTIVE Health Care Decision (hx) 03/13/2022 AD LANGLEY DIRECTIVE Health Care Decision (hx) 03/13/2022 AD LANGLEY DIRECTIVE Health Care Decision (hx) 03/13/2022 AD LANGLEY DIRECTIVE Health Care Decision (hx) 03/13/2022 AD LANGLEY DIRECTIVE Health Care Decision (hx) 03/13/2022 AD LANGLEY DIRECTIVE Health Care Decision (hx) 03/13/2022 AD LANGLEY DIRECTIVE Health Care Decision (hx) 03/13/2022 AD LANGLEY DIRECTIVE Health Care Decision (hx) 03/13/2022 AD LANGLEY DIRECTIVE Health Care Decision (hx) 03/13/2022 AD LANGLEY DIRECTIVE Health Care Decision (hx) 03/13/2022 AD LANGLEY DIRECTIVE Health Care Decision (hx) 03/13/2022 AD LANGLEY DIRECTIVE Health Care Decision (hx) 03/13/2022 AD LANGLEY DIRECTIVE Health Care Decision (hx) 03/13/2022 AD LANGLEY DIRECTIVE Health Care Decision (hx) 03/13/2022 AD LANGLEY DIRECTIVE Health Care Decision (hx) 03/13/2022 AD LANGLEY DIRECTIVE Health Care Decision (hx) 03/13/2022 AD LANGLEY DIRECTIVE Health Care Decision (hx) 02/14/2022 AD LANGLEY DIRECTIVE Health Care Decision (hx) 02/14/2022 AD LANGLEY DIRECTIVE Health Care Decision (hx) 02/14/2022 AD LANGLEY DIRECTIVE Health Care Decision (hx) 02/14/2022 AD LANGLEY DIRECTIVE Health Care Decision (hx) 02/14/2022 AD LANGLEY DIRECTIVE Health Care Decision (hx) 02/14/2022 AD LANGLEY DIRECTIVE Health Care Decision (hx) 02/14/2022 AD LANGLEY DIRECTIVE Health Care Decision (hx) 02/14/2022 AD LANGLEY DIRECTIVE Health Care Decision (hx) 02/14/2022 AD LANGLEY DIRECTIVE Health Care Decision (hx) 02/14/2022 AD LANGLEY DIRECTIVE Health Care Decision (hx) 02/14/2022 AD LANGLEY DIRECTIVE Health Care Decision (hx) 02/14/2022 AD LANGLEY DIRECTIVE Health Care Decision (hx) 02/14/2022 AD LANGLEY DIRECTIVE Health Care Decision (hx) 02/14/2022 AD LANGLEY DIRECTIVE Health Care Decision (hx) 02/14/2022 AD LANGLEY DIRECTIVE Health Care Decision (hx) 02/14/2022 AD LANGLEY DIRECTIVE Health Care Decision (hx) 02/14/2022 AD LANGLEY DIRECTIVE Health Care Decision (hx) 02/14/2022 AD LANGLEY DIRECTIVE Health Care Decision (hx) 02/14/2022 AD LANGLEY DIRECTIVE Health Care Decision (hx) 02/14/2022 AD LANGLEY DIRECTIVE Health Care Decision (hx) 02/14/2022 AD LANGLEY DIRECTIVE Health Care Decision (hx) 02/14/2022 AD LANGLEY DIRECTIVE Health Care Decision (hx) 02/14/2022 AD LANGLEY DIRECTIVE Health Care Decision (hx) 12/21/2021 AD LANGLEY DIRECTIVE Health Care Decision (hx) 12/21/2021 AD LANGLEY DIRECTIVE Health Care Decision (hx) 12/21/2021 AD LANGLEY DIRECTIVE Health Care Decision (hx) 12/21/2021 AD LANGLEY DIRECTIVE Health Care Decision (hx) 12/21/2021 AD LANGLEY DIRECTIVE Health Care Decision (hx) 12/21/2021 AD LANGLEY DIRECTIVE Health Care Decision (hx) 12/21/2021 AD LANGLEY DIRECTIVE Health Care Decision (hx) 12/21/2021 AD LANGLEY DIRECTIVE Health Care Decision (hx) 12/21/2021 AD LANGLEY DIRECTIVE Health Care Decision (hx) 12/21/2021 AD LANGLEY DIRECTIVE Health Care Decision (hx) 12/21/2021 AD LANGLEY DIRECTIVE Health Care Decision (hx) 12/21/2021 AD LANGLEY DIRECTIVE Health Care Decision (hx) 12/21/2021 AD LANGLEY DIRECTIVE Health Care Decision (hx) 12/21/2021 AD LANGLEY DIRECTIVE Health Care Decision (hx) 12/21/2021 AD LANGLEY DIRECTIVE Health Care Decision (hx) 12/21/2021 AD LANGLEY DIRECTIVE Health Care Decision (hx) 12/21/2021 AD LANGLEY DIRECTIVE Health Care Decision (hx) 12/21/2021 AD LANGLEY DIRECTIVE Health Care Decision (hx) 12/21/2021 AD LANGLEY DIRECTIVE Health Care Decision (hx) 12/21/2021 AD LANGLEY DIRECTIVE Health Care Decision (hx) 12/21/2021 AD LANGLEY DIRECTIVE Health Care Decision (hx) 12/21/2021 AD LANGLEY DIRECTIVE Health Care Decision (hx) 12/21/2021 AD LANGLEY DIRECTIVE Health Care Decision (hx) 12/21/2021 AD LANGLEY DIRECTIVE Care Teams In Home Baby Sitter Relationship Specialty Start Date End Date Omaira Mix MD [address] [place] [address] PCP - General Internal Medicine 11/17/21
== END 2025-03-01 13:25 | disposition home or self-care (01) ==
LOC: HO.HSM 12:59
PROVIDERS: PCP Internal Medicine; Visit Provider Psychiatry & Neurology Neurology
DX: G30.1 Alzheimer's disease with late onset (principal); F02.A4 Dementia in other diseases classified elsewhere, mild, with anxiety
CPT/HCPCS: 99214

== ENCOUNTER → 2025-03-01 12:58 | Outpatient (BNVA) | payer MEDICARE, MEDICAID, SELFPAY | PROVIDERS: PCP Internal Medicine; Visit Provider Psychiatry & Neurology Neurology | DX: G30.1 Alzheimer's disease with late onset (principal); F02.A4 Dementia in other diseases classified elsewhere, mild, with anxiety; Z79.82 Long term (current) use of aspirin; Z79.899 Other long term (current) drug therapy | CPT/HCPCS: 99212 ==

== ENCOUNTER 2025-05-10 12:53 | Outpatient (AMB) | payer MEDICARE, MEDICAID, SELFPAY ==
--- OUTSIDE RECORDS SUMMARY | 2025-05-05 14:00 | XMS_ITS | Encounter Summary ---
Author Organization [employer] [facility] Address [address] [place] [address] Care Team Providers Care Hydrological Technical Officer Name Role Phone Pcp, Ramona Unassigned Primary Care Provider U navailable Reason for Visit * Reason Comments Routine Cleaning Dental Exam Encounter Details Date Type Department Care Team (Late st Contact Info) Description 05/05/2025 2:00 PM EDT Office Visit [facility] [address] [place] [address] Gila Willoughby Encounter for dental examination (Primary Dx); Periodontal disease Social History Tobacco Use Types Packs/Day Years Used Date Smoking Tobacco: Every Day Cigarettes Comments:Pt states she is tr tripp to cut down. Alcohol Use Standard Drinks/Week Comments Not Currently 0 (1 standard drink = 0.6 oz pure alcohol) many years since last alcoholic beverage Comments Unknown Sex and Gender Information Value Date Recorded Sex Assigned at Female 06/25/2022 10:35 AM EDT Legal Sex Female 10:35 AM EDT Gender Identity Female 12/13/2022 10:43 AM EDT Sexual Orientation Choose not to disclose 2022 10:43 AM EDT documented as of this encounter Last Filed Vital Signs Vital Sign Reading Time Taken Comments Blood Pressure 139/84 05/05/2025 2:05 PM EDT Pulse 54 05/05/2025 2:05 PM EDT Temperature - - Respiratory Rate - - Oxygen Saturation - - Inhaled Oxygen Concentration - - Weight - - Height - - Body Mass Index - - documented in this encounter Progress Notes * Gila Willoughby - 05/05/2025 2:00 PM EDT Prophy + LIVE Subjective: Chief Complaint (CC):--routine cleaning Medical History: Reviewed, Objective: Oral Hygiene Status: Fair Gingival Description: pink inflamed, with mild bleeding on probing Oral Cancer Exam: within normal limits Periodontal Diagnosis: STAGE II grade 2 chronic periodontitis Calculus: Moderate Supra / Subgingival Radiographs Taken: Type - BWR Caries/Radiographic Findings: as on the chart Vital Signs: BP-139/84 HR- 54 Assessment: Risk Factors: None Plan / Treatment Provided: Hygiene Treatment: Full-mouth prophylaxis performed using ultrasonic and hand instruments Teeth polished with Pumice Interdental flossing completed Oral hygiene instructions given and reinforced Brushing technique, and flossing Evaluation/Treatment Planning (Dentist): Exam done by Dr. Adam Kumar Decay # 18 noted, Muslim #18 Discussed findings with patient Recommendations: Muslim Follow-up in 4 months Patient Tolerance: Good Post-Treatment Instructions Given: Yes Patient did great Gila Wliloughby documented in this encounter Plan of Treatment Upcoming Encounters Date Type Department Care Team (Late st Contact Info) Description 05/20/2025 12:00 PM EDT Office Visit [facility] DENTAL [address] [place] [address] Sharri Deutsch LLD [address] [place] [address] 09/08/2025 2:00 PM EST Office Visit [facility] [address] [place] [address] Gila Willoughby Scheduled Orders Name Type Priority Associated Diagnoses Orde r Schedule 18 M 18 M RESIN-BASED COMPOSITE - 1 SURF, POSTERIOR Dental Routine [address] arting 05/05/2025 PROPHYLAXIS - ADULT Dental Routine 1 Occ urrences starting 05/05/2025 documented as of this encounter Procedures Procedure Name Priority Date/Time Associated Diagnosis Comments Full PROPHYLAXIS - ADULT Routine 025 2:00 PM EDT PERIODIC ORAL EVALUATION - ESTABLISHED PATIENT Routine 05/05/2025 2:00 PM EDT ORAL HYGIENE INSTRUCTIONS Routine 2024 2:00 PM EDT BITEWINGS - 4 RADIOGRAPHIC IMAGES Routine 05/05/2025 2:00 PM EDT documented in this encounter Visit Diagnoses Diagnosis Encounter for dental examination- Primary Periodontal disease Unspecified gingival and periodontal disease documented in this encounter Care Teams Hydrological Technical Officer Relationship Specialty Start Date End Date Pcp, [place] Unassigned PCP - General Family Medicine 12/24/22 documented as of this encounter
--- NOTE | 2025-05-10 13:20 | A.OFFVIS_ITS ---
Intake Visit Reasons: 2m mci Allergies hydrochlorothiazide Allergy (Verified 02/24/25 19:20) Unknown Penicillins Allergy (Verified 02/24/25 19:20) Unknown sulfur dioxide Allergy (Verified 02/24/25 19:20) Unknown trazodone Allergy (Verified 02/24/25 19:20) Unknown Medication List - Last Reconciled 05/10/25 by Olayinka Chadwick MD aspirin 81 mg PO DAILY atorvastatin 40 mg PO DAILY calcium carbonate 600 mg PO Q12H ezetimibe 10 mg PO DAILY fluticasone propionate 50 mcg/actuation 2 sprays intranasal DAILY furosemide 20 mg PO DAILY memantine (Namenda) 5 mg PO BID 90 days metoprolol succinate ER 100 mg PO DAILY omeprazole 20 mg PO QAM potassium chloride ER 10 mEq PO DAILY sertraline 25 mg PO DAILY HPI Comments Details: 70 yo RH woman with HTN, HLD, depression, h/o alcohol abuse, and left breast cancer?is here for cognitive issues. She used to drink heavy amount of beer until 2017 when it started to affect her liver and she stopped drinking it. Around same time, she was also treated for depression. Since then she has been forgetful. She is presenting with concerns regarding medication management for cognitive impairment and anxiety. The patient reports stress but notes that her cognitive impairment shows improvement with Memantine use, initially at 5 mg twice daily. The medication effectiveness is evaluated at about a 30-40% decrease in symptoms. She queried the compatibility of her medications with postoperative requirements after cataract surgery. The patient maintains a structured medication schedule: Omeprazole in the morning followed by her regular medications at 8 a.m., including Memantine at 9 a.m. and 9 p.m., with Mirtazapine and Metoprolol at bedtime. Initial adverse effects of Memantine, such as nausea and dizziness, have reduced. Current adjustments aim to transition Memantine to a 10 mg twice daily regimen. Follow- up is planned for six months. [facility] Medical History (Updated 03/01/25 @ 13:17 by Olayinka Chadwick MD) Depression GERD (gastroesophageal reflux disease) Insomnia Hypertension HLD (hyperlipidemia) Alzheimer disease MCI (mild cognitive impairment) Anxiety Cerebral microvascular disease Migraine Encephalopathy Review of Systems Const Details: - Psychiatric: Reports stress. - Neurological: Reports improvement in memory with Memantine usage. Physical Exam Neuro Other: Mental Status: Alert and oriented to person, place, and time. Normal attention. Normal spontaneous speech, fluency, and comprehension. Cranial Nerves: CN II: Visual ramos full to confrontation, visual acuity intact. CN III, IV, : Pupils equal, round, reactive to light and accommodation. Extraocular movements are normal. CN V: Facial sensation is normal. CN VII: Facial movements symmetrical. CN VIII: Hearing intact to bedside conversation is normal. CN IX, X: Palate elevates symmetrically. CN XI: Shoulder shrug and head turn symmetrical. CN XII: Tongue midline without atrophy or fasciculations. Extrapyramidal: Full facial expressions and blinking. No rigidity. Movements are appropriate with no tremor or abnormality. Speech: Normal; no dysarthria or tremor. Assessment & Plan Assessment & Plan (1) Alzheimer dementia: Code(s): G30.9 - Alzheimer's disease, unspecified; F02.80 - Dementia in other diseases classified elsewhere, unspecified severity, without behavioral disturbance, psychotic disturbance, mood disturbance, and anxiety Category: Medical Qualifiers: Alzheimer's disease onset: late onset Dementia severity: mild Dementia behavioral or psychological symptom: with anxiety Qualified Code(s): G30.1 - Alzheimer's disease with late onset; F02.A4 - Dementia in other diseases classified elsewhere, mild, with anxiety Plan: MRI brain WO at [place] in Nov 2024: Mild PT atrophy, mild MVD Plan Impression: Dementia, multifactorial Rec: Memantine 10mg bid Medications: New memantine 10 mg PO BID 180 tabs 1RF Discontinued memantine (Namenda) Discontinued Reason: Doctor's Order 5 mg PO BID 90 days 180 tabs 0RF Coding Level of Care Code Est Pt Level 4 (13580) Diagnoses Mild late onset Alzheimer's dementia with anxiety G30.1; F02.A4 Alzheimer's disease onset: late onset Dementia severity: mild Dementia behavioral or psychological symptom: with anxiety
--- OUTSIDE RECORDS SUMMARY | 2025-05-10 17:45 | XMS_ITS | Encounter Summary ---
Author Organization [employer] [facility] Address [address] [place] [address] Care Team Providers Care Worm Farmer Name Role Phone PcpRamona Unassigned Primary Care Provider U navailable Encounter [...] Description 05/20/2025 12:00 PM EDT Office Visit [facility] DENTAL [address] [place] [address] Sharri Deutsch LLD [address] [place] [address] 09/08/2025 2:00 PM EST Office Visit [facility] DENT[facility] [address] [place] [address] Gila Willoughby documented as of this encounter Visit Diagnoses Not on filedocumented in this encounter Care Teams Worm Farmer Relationship Specialty Start Date End Date Ramona Quispessdelfina PCP - General Family Medicine 12/24/22 documented as of this encounter
--- OUTSIDE RECORDS SUMMARY | 2025-05-10 17:45 | XMS_ITS | Clinical Summary ---
Author Organization [employer] Address [address] [facility] 7 [place] [address] Care Team Providers Care Electronic Commerce Specialist Name Role Phone PcpRamona Unassigned Primary Care Provider U navailable Allergies Active Allergy Reactions Criticality Noted Date Comments Hydrochlorothiazide Rash Low 01/15/2021 Other reaction(s): Other (see comments) Iodinated Contrast Media 01/15/2021 Other reaction(s): Other (see comments) Irbesartan-Hydrochlorothiazi de 03/06/2022 Per pcp Penicillins Shortness of breath High 10/03/2018 Other reaction(s): HIVES SOB SWELLING Per pcp-preop Sulfa Antibiotics Shortness of breath High 12/19/2012 Other reaction(s): HIVES SOB SWELLING Per pcp pre-op Trazodone Rash Low 01/15/2021 Other reaction(s): Other (see comments) Per pcp pre-op Medications Albuterol Sulfate 108 (90 Base) MCG/ACT aerosol powder Inhale. 3 Active Acetaminophen Extra Strength 500 MG tablet TAKE 2 TABLETS BY MOUTH EVERY 8 HOURS FOR 28 DAYS 2 Active aspirin 81 MG EC tablet Take 1 tablet by mouth in the morning. Active Aspirin Low Dose 81 MG EC tablet Take 81 mg by mouth in the morning. 3 Active atorvastatin (Lipitor) 40 MG tablet 3 Active atorvastatin (Lipitor) 40 MG tablet Take 40 mg by mouth at bedtime. 3 Active calcium carbonate 1500 (600 Ca) MG tablet Take 1,500 mg by mouth every 12 (twelve) hours. 3 Active cholecalciferol (Vitamin D-3) 50 MCG (1999 UT) capsule Take 1 capsule by mouth. Active cholecalciferol (Vitamin D-3) 50 MCG (1999 UT) tablet Take by mouth. Acti ve cholecalciferol (Vitamin D-3) 10 MCG (400 UNIT) tablet Take by mouth. 8 Active ciclopirox (Penlac) 8 % solution Active ciclopirox (Penlac) 8 % solution APPLY TO THE AFFECTED TOENAILS & SURROUNDING AREA DAILY. REMOVE WITH ALCHOHOL EVERY 7 DAYS. 2 Active ciclopirox (Loprox) 0.77 % cream Apply topically every 12 (twelve) hours. Active clindamycin (Cleocin) 300 MG capsule TAKE 2 TABS ONE HOUR PRIOR TO DENTAL PROCEDURE 2 Active clindamycin (Cleocin) 300 MG capsule Take 2 tabs one hour prior to dental procedure 2 Active diphenhydrAMINE (BENADryl) 25 MG capsule Take 2 capsules by mouth every 4 (four) hours. Active ezetimibe (Zetia) 10 MG tablet 2 Active fluticasone (Flonase) 50 MCG/ACT nasal spray Administer 1-2 sprays into affected nostril(s) at bed time. Active fluticasone (Flonase) 50 MCG/ACT nasal spray 8 Active furosemide (Lasix) 20 MG tablet 8 Active furosemide (Lasix) 20 MG tablet Take 20 mg by mouth in the morning. 3 Active ibuprofen 600 MG tablet Take 1 tablet by mouth in the morning and 1 tablet at noon and 1 tablet in the evening. 9 Active lactulose (Chronulac) 10 GM/15ML solution Take 0.5 oz by mouth. 1 Active lactulose (Chronulac) 10 GM/15ML solution Take 30 mL by mouth in the morning. 2 Active metoprolol succinate XL (Toprol-XL) 100 MG 24 hr tablet 2 Active metoprolol succinate XL (Toprol-XL) 100 MG 24 hr tablet Take 100 mg by mouth in the morning. 3 Active metoprolol tartrate (Lopressor) 50 MG tablet Take 1 tablet by mouth every 12 (twelve) hours. Active mirtazapine (Remeron) 7.5 MG tablet 1 Active omeprazole (PriLOSEC) [address] capsule 1 Active omeprazole (PriLOSEC) [address] capsule TAKE 1 CAPSULE BY MOUTH EVERY DAY IN THE MORNING BEFORE BREAKFAST 3 Active ondansetron (Zofran) 4 MG tablet TAKE 1 TO 2 TABLETS EVERY 8 (EIGHT) HOURS NEEDED FOR NAUSEA FOR UP TO 14 DAYS 2 Active oxyCODONE (Roxicodone) 5 MG immediate release tablet Take 5 mg by mouth every 8 (eight) hours if needed. 2 Active oxyCODONE (Roxicodone) 5 MG immediate release tablet Take 5 mg by mouth every 8 (eight) hours if needed. 2 Active polyethylene glycol-electrol ytes (Nulytely) 420 g solution See Instructions, 240 mL By Mouth Every 15 minutes, # 4,000 mL, 0 Refills, Maintenance, 10/04/20 14:47:00 EST, [facility]/pharmacy #[id number], Partial fill upon patient request if the prescription is for a schedule II opioid drug., 240 mL By Mouth Every 15 minutes 1 Active Potassium 99 MG tablet Active potassium chloride CR (Klor-Con) 10 MEQ ER tablet 2 Active potassium chloride CR (Klor-Con) 10 MEQ ER tablet TAKE 1 TABLET (10 MEQ TOTAL) BY MOUTH 1 (ONE) TIME EACH DAY DO NOT CRUSH, CHEW, OR SPLIT. 3 Active potassium chloride CR (Klor-Con M10) 10 MEQ ER tablet Take 10 mEq by mouth 2 times daily. Active [facility] Senna Plus 8.6-50 MG tablet TAKE 1 TABLET BY MOUTH 2 TIMES A DAY FOR CONSTIPATION STOP ONCE NO LONGER TAKING OPIOIDS OPIOID MEDS 2 Active Compression Bandages misc See Instructions, # 1 pair, Refills 4, Tot. Refills 4, Maintenance, use as directed, 03/19/13 14:15:59, Compound 3 Active Encounters Date Type Department Care Team Description 05/05/2025 2:00 PM EDT Office Visit [facility] [address] [place] [id number] Gila Willoughby Encounter for dental examination (Primary Dx); Periodontal disease from Last 3 Months Immunizations Immunization Administration Dates Next Due Influenza Injectable Quadriv alant Preservative Free IIV4 MDCK 06/27/2022,07/04/2019 Influenza Whole 07/02/2011 Influenza, IIV3, injectable 07/15/2015, 4,08/23/2009 Influenza, seasonal, injecta ble, preservative free 09/17/2017 Novel [id number], all formulations 2008 Novel [id number] 08/23/2009 Pneumococcal Conjugate PCV 13 07/15/2015 Td (adult), unspecified 07/05/2009 Tdap 12/17/2017 Zoster, Recombinant 11/15/2022,06/27/2022 Social History Tobacco Use Types Packs/Day Years Used Date Smoking Tobacco: Every Day Cigarettes Tobacco Cessation:Ready to Q uit: Yes; Counseling Given: Yes Comments:Pt states she is trying to cut down. Alcohol Use Standard Drinks/Week [...] not to disclose 2022 10:43 AM EDT Last Filed Vital Signs Vital Sign Reading Time Taken Comments Blood Pressure 139/84 05/05/2025 2:05 PM EDT Pulse 54 05/05/2025 2:05 PM EDT Temperature - - Respiratory Rate - - Oxygen Saturation - - Inhaled Oxygen Concentration - - Weight - - Height - - Body Mass Index - - Plan of Treatment Upcoming Encounters Date Type Department Care Team (Late st Contact Info) Description 05/20/2025 12:00 PM EDT Office Visit [facility] [address] [place] [address] Sharri Deutsch LLD [address] [place] [address] 09/08/2025 2:00 PM EST Office Visit [facility] [address] [place] [address] Gila Willoughby Health Maintenance Due Date Last Done Comments CT Colonography 1955 Colonoscopy 1955 Colorectal Cancer Screening 1955 Depression Screening 1955 FIT DNA/Cologuard 1955 FIT 1955 FOBT 1955 Lipid Panel 1955 SDOH Screening 1955 Sigmoidoscopy 1955 Alcohol/Substance Use Screening 1967 Hepatitis C Screening 1973 Hepatitis A Vaccines (1 of 2 - Risk 2-dose series) 1974 Hepatitis B Vaccines (1 of 3 - Risk 3-dose series) 2015 RSV Patients and Patients Aged 60 years or older (1 - Risk 60-74 years 1-dose series) 2015 Dental X-Ray: Full Mouth 08/23/2023 08/22/2020, 04/0 12/2018 COVID-19 Vaccine ( season) 2025 06/19/2024, 06/11/2023, 07/18/2022, Additional history exists Influenza Vaccine (#1) 2025 , 06/11/2023, 06/27/2022, Additional history exists Dental Oral Exam 11/03/2025 05/05/2025, 09/2024, 01/24/2024, Additional history exists Dental Prophylaxis 11/03/2025 05/05/2025, 0 12/16/2024, 08/27/2024, Additional history exists Tobacco Screening 12/16/2025 12/16/2024 Dental X-Ray: Bitewings 05/06/2026 05/05/20, 01/24/2024, 12/24/2022, Additional history exists DTaP/Tdap/Td Vaccines (2 - Td or Tdap) 12/18/2027 12/17/2017, 07/05/2009, 07/05/2009 Zoster Vaccines Completed 11/15/2022, 07/27, 06/27/2022 Pneumococcal Vaccine: 50+ Years Completed 03/22/2025, 07/15/2015 HIB Vaccines Aged Out No longer eligi [...] patient's age to complete this topic Meningococcal Vaccine Aged Out No mony bulmaro eligible based on patient's age to complete this topic RSV under 20 months Aged Out No longe r eligible based on patient's age to complete this topic Rotavirus Vaccines Aged Out No longer eligible based on patient's age to complete this topic Procedures Procedure Name Priority Date/Time Associated Diagnosis Comments ORAL HYGIENE INSTRUCTIONS Routine 2024 2:00 PM EDT BITEWINGS - 4 RADIOGRAPHIC IMAGES Routine 05/05/2025 2:00 PM EDT Full PROPHYLAXIS - ADULT Routine 025 2:00 PM EDT PERIODIC ORAL EVALUATION - ESTABLISHED PATIENT Routine 05/05/2025 2:00 PM EDT INTRAORAL - COMPLETE SERIES OF RADIOGRAPHIC IMAGES Routine 08/22/2020 12:00 AM EST from Last 3 Months or Most Recently Relevant to Health Maintenance Insurance [facility] MEDICAID STAND ADULT DENTAL - [facility] FULL (MEDICAID) Care Teams Electronic Commerce Specialist Relationship Specialty Start Date End Date Ramona Quispe Unassigned PCP - General Family Medicine 12/24/22
--- OUTSIDE RECORDS SUMMARY | 2025-05-10 17:45 | XMS_ITS | Encounter Summary ---
Author Organization [employer] [facility] Address [address] [facility] 7 [place] [address] Care Team Providers Care Extracorporeal Circulation Specialist Name Role Phone PcpRamona Unassigned Primary Care Provider U navailable Encounter Details Date Type Department Care Team (Latest Contact Info) Description 11/28/2018 Abstract [facility] Dental, Provider, DDS Social History Tobacco [...] Description 05/20/2025 12:00 PM EDT Office Visit [facility] [address] [place] [address] Sharri Deutsch LLD [address] [place] [address] 09/08/2025 2:00 PM EST Office Visit [facility] [address] [place] [address] Gila Willoughby documented as of this encounter Visit Diagnoses Not on filedocumented in this encounter Care Teams Extracorporeal Circulation Specialist Relationship Specialty Start Date End Date Ramona Quispessdelfina PCP - General Family Medicine 12/24/22 documented as of this encounter
--- OUTSIDE RECORDS SUMMARY | 2025-05-10 17:45 | XMS_ITS ---
Author Name [facility] Organization Unknown History of Medication Use Medication Directions Dispensed Refills Start Date End Date Stat us acetaminophen 500 mg tablet TAKE 2 TABLETS BY MOUTH EVERY 8 HOURS FOR 28 DAYS active atorvastatin 40 mg tablet TAKE 1 TABLET BY MOUTH EVERYDAY AT BEDTIME active calcium carbonate 600 mg calcium (1,500 mg) tablet TAKE 1 TABLET BY MOUTH EVERY 12 HOURS active ciclopirox 8 % topical solution APPLY TO THE AFFECTED TOENAILS & SURROUNDING AREA DAILY. REMOVE WITH ALCHOHOL EVERY 7 DAYS. active clindamycin HCl 300 mg capsule TAKE 1 CAPSULE BY MOUTH EVERY 6 HOURS active furosemide 20 mg tablet TAKE 1 TABLET BY MOUTH EVERY DAY active lactulose 10 gram/15 mL oral solution TAKE 15 ML BY MOUTH DAILY active metoprolol succinate ER 100 mg tablet,extended release 24 hr TAKE 1 TABLET BY MOUTH EVERY DAY active omeprazole 20 mg capsule,delayed release TAKE 1 CAPSULE BY MOUTH EVERY DAY IN THE MORNING BEFORE BREAKFAST active Allergies Allergen Reaction Severity Comment Documented Date Source Statu s PENICILLAMINE ENS_[facility]ONECT HYDROCHLOROTHIAZIDE E[facility] PENICILLINS ENS_[facility]ON[facility] SULFA (SULFONAMIDE ANTIBIOTICS) E[facility] TRAZODONE E[facility] Problems Problem Status Onset Date Problem Type Date of Resoluti on Source 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
--- OUTSIDE RECORDS SUMMARY | 2025-05-10 17:45 | XMS_ITS | Clinical Summary ---
Author Organization [facility] Address [address] [place] [address] Care Team Providers Care Retail District Manager Name Role Phone Omaira Mix MD Primary Care Provider [phone] Allergies Active Allergy Reactions Criticality Noted Date [...] age to complete this topic Care Teams Retail District Manager Relationship Specialty Start Date End Date Omaira Mix MD PCP - General Internal Medicine 12/20/21
--- OUTSIDE RECORDS SUMMARY | 2025-05-10 17:45 | XMS_ITS | Clinical Summary ---
Author Organization [facility] Address [address] [address] Phone Care Team Providers Care Mechanical Engineering Lecturer Name Role Phone Omaira Mix MD Primary Care Provider [phone] Allergies Active Allergy Reactions Criticality Noted Date [...] time each day Active Cholecalciferol 50 MCG (1999 UT) capsule Take 1 capsule by mouth [...] 1 (one) time each day 03/15/2021 Active ezetimibe (ZETIA) 10 MG tablet Take 10 mg by mouth 1 (one) time each day 10/30/2021 Active metoprolol succinate XL (TOPROL-XL) 100 MG 24 hr tablet 11/15/2021 Act rhianna potassium chloride 10 MEQ CR tablet TAKE 1 TABLET (10 MEQ TOTAL) BY MOUTH 1 (ONE) TIME EACH DAY DO NOT CRUSH, CHEW, OR SPLIT. 30 tablet 11 06/18/2024 5 Active Calcium Carb-Cholecalci ferol (CALCIUM 600 + D PO) Take 600 mg by mouth 1 (one) time each day Active memantine (NAMENDA) 5 MG tablet Take 5 mg by mouth in the morning and 5 mg in the evening. Active Active Problems Problem Noted Date Diagnosed [...] 07/03/2013 Overview (11/16/2021): January 2009, [facility] in [place]. Dr Goins (sp?) Coronary arteriosclerosis 06/03/2013 Diverticular disease 06/03/2013 Mixed anxiety and depressive disorder 06/03/2013 Overview (11/16/2021): [facility]: Dr David Sandoval, psych. Daniela Barron, therapist [...] Encounters Date Type Department Care Team Description 03/04/2025 1:30 PM EDT Office Visit [facility] [address] [place] [phone] Magdy Starkey MD Chronic kidney disease, stage 2 (mild) (Primary Dx); Hypertensive disorder; Hyponatremia 02/15/2025 Orders Only [facility] [address] [phone] Magdy Starkey MD Chronic kidney disease, stage [...] Sign Reading Time Taken Comments Blood Pressure 117/64 03/04/2025 1:28 PM EDT Pulse 58 03/04/2025 1:28 PM EDT Temperature - - Respiratory Rate - - Oxygen Saturation 98% 11/16/2021 1:42 PM EDT Inhaled Oxygen Concentration - - Weight 64.9 kg (143 lb) 03/04/2025 1:28 PM EDT Height 174 cm (5' 8.5 ) 03/17/2021 10:46 AM EDT Body Mass Index 21.43 03/17/2021 10:46 AM EDT Plan of Treatment Upcoming Encounters Date Type Department Care Team (Late st Contact Info) Description 03/17/2026 1:00 PM EDT Office Visit [facility] [address] [place] [address] Magdy Starkey MD [address] [phone] Health Maintenance Due Date Last Done Comments [...] TIBC 343 250 - 450 ug/dL [facility] UIBC 264 118 - 369 ug/dL [facility] Iron 79 27 - 139 ug/dL [facility] Iron Saturation (TSat) 23 15 - 55 % [facility] Blood Venous blood / Unknown 02/27/2025 8:22 AM EDT 02/27/2025 us Magdy Starkey MD LAB BLOOD ORDERABLES Final Resu lt [facility] [address] [place] [address] * (ABNORMAL) Protein, Total, Random Urine w/Creatinine (Protein/Creat Ratio) (02/27/2025 8:22 AM EDT) Creatinine, Ur 33.9 Not Estab. mg/dL [facility] Protein, Ur 14.8 Not Estab. mg/dL [facility] Urine Protein/Creati nine Ratio 437(H) 0 - 200 mg/g creat [facility] Urine Urine specimen obtained by clean catch procedure / Unknown 02/27/2025 8:22 AM EDT 02/27/2025 us Magdy Starkey MD LAB URINE ORDERABLES Final Resu lt [facility] [address] [place] [address] * (ABNORMAL) CBC and Differential (02/27/2025 8:22 AM EDT) Pathologist [facility] WBC 13.2(H) 3.4 - 10.8 x10E3/uL [facility] RBC 4.10 3.77 - 5.28 x10E6/uL [facility] Hemoglobin 12.8 11.1 - 15.9 g/dL [facility] Hematocrit 41.5 34.0 - 46.6 % [facility] MCV 101(H) 79 - 97 fL [facility] MCH 31.2 26.6 - 33.0 pg [facility] MCHC 30.8(L) 31.5 - 35.7 g/dL [facility] RDW 12.2 11.7 - 15.4 % [facility] Platelets 203 150 - 450 x10E3/uL [facility] Neutrophils Relative 81 Not Estab. % [facility] Lymphocytes Relative 15 Not Estab. % [facility] Monocytes 4 Not Estab. % [facility] Eosinophils Relative 0 Not Estab. % [facility] Basophils Relative 0 Not Estab. % [facility] Neutrophils Absolute 10.6(H) 1.4 - 7.0 x10E3/uL [facility] Lymphocytes Absolute 2.0 0.7 - 3.1 x10E3/uL [facility] Monocytes Absolute 0.5 0.1 - 0.9 x10E3/uL [facility] Eosinophils Absolute 0.0 0.0 - 0.4 x10E3/uL [facility] Basophils Absolute 0.0 0.0 - 0.2 x10E3/uL [facility] Immature Granulocytes 0 Not Estab. % [facility] Immature Grans (Absolute) 0.0 0.0 - 0.1 x10E3/uL [facility] Blood Venous blood / Unknown 02/27/2025 8:22 AM EDT 02/27/2025 Magdy Starkey MD LAB BLOOD ORDERABLES Final Resu lt [facility] [address] [place] [address] * Ferritin (02/27/2025 8:22 AM EDT) Ferritin 20 15 - 150 ng/mL [facility] Blood Venous blood / Unknown 02/27/2025 8:22 AM EDT 02/27/2025 us Magdy Starkey MD LAB BLOOD ORDERABLES Final Resu lt Performing Organization Address City/[facility]/ZIP Co de Phone Number [facility] [address] [place] [address] * Renal Function Panel (02/27/2025 8:22 AM EDT) Phosphorus 3.4 3.0 - 4.3 mg/dL [facility] 02/27/2025 8:22 AM EDT 02/27/2025 Magdy Starkey MD LAB BLOOD ORDERABLES Final Resu lt Performing Organization Address [facility] Co de Phone Number [facility] [address] [place] [address] * Comprehensive Metabolic Panel (02/27/2025 8:22 AM EDT) Glucose 93 70 - 99 mg/dL [facility] BUN 15 8 - 27 mg/dL [facility] Creatinine 0.97 0.57 - 1.00 mg/dL [facility] eGFR CKD-EPI CR 2020 63 >59 mL/min/1.7 3 [facility] BUN/Creatinine Ratio 15 12 - 28 [facility] Sodium 141 134 - 144 mmol/L [facility] Potassium 4.2 3.5 - 5.2 mmol/L [facility] Chloride 103 96 - 106 mmol/L [facility] Bicarbonate (CO2) 23 20 - 29 mmol/L [facility] Calcium 9.5 8.7 - 10.3 mg/dL [facility] Total Protein 6.3 6.0 - 8.5 g/dL [facility] Albumin 4.1 3.9 - 4.9 g/dL [facility] Globulin 2.2 1.5 - 4.5 g/dL [facility] Total Bilirubin 0.4 0.0 - 1.2 mg/dL [facility] Alkaline Phosphatase 72 44 - 121 IU/L [facility] AST (SGOT) 19 0 - 40 IU/L [facility] ALT (SGPT) 13 0 - 32 IU/L [facility] Blood Venous blood / Unknown 02/27/2025 8:22 AM EDT 02/27/2025 us Magdy Starkey MD LAB BLOOD ORDERABLES Final Resu lt [facility] [address] [place] [address] from Last 3 Months Insurance Medicare Medicaid [place] Medicare Medicaid [place] Care Teams Mechanical Engineering Lecturer Relationship Specialty Start Date End Date Omaira Mix MD [address] [place] [address] PCP - General Internal Medicine 07/05/22
--- OUTSIDE RECORDS SUMMARY | 2025-05-10 17:45 | XMS_ITS | Continuity of Care Document ---
Author Organization [facility] [address] [place] [address] Phone [phone] Care Team Providers Care Full Time Paramedic Name Role Phone Елена Mix M.D. Care Team Information Unmanned Equipment Operator [phone] Problems Active Problems Provider Date Hypercholesterolemia Seymour [...] Qnty Indications Order ing Provider Date Vitamin [id number] (1999 Ut) Chewtabs one qd Seymour Olivarez M.D. 06/19/2023 Calcium 600 High [id number] Tablets Seymour eid M.D. 06/19/2023 [id number] Tablets Take 1 tablet daily Unknown Potassium Chloride [id number] Tablets ER Take 1 Tablet (10 Meq Total) By Mouth 1 (One) Time Each Day DO Not Crush, Chew, Unknown Mirtazapine7.5mg Tablets Take 1 Tablet By Mouth Everyday AT Bedtime Елена Mix M.D. Atorvastatin Eagacbr87en Tablets Take 1 Tablet By Mouth Every Day Unknown Metoprolol Succinate [id number] Tablets ER 24HR Take 1 Tablet By Mouth Every Day Unknown Pwmyhgrltl66qr Tablets Take 1 tablet daily Naina Randall MD Ciclopirox8% Solution Apply To The Affected Toenails & Surrounding Area Daily. Remove With Alchohol Ev Елена Mix M.D. Smlpilwhfx00ib Capsules DR Take 1 Capsule By Mouth Every Morning (Before Breakfast) Naina Randall MD Fluticasone Ohyfvvlwid23wqr/Act Suspension [place] 2 Sprays Into Each Nostril Every Day Елена Mix M.D. Vital Signs Date Vital Result Comment 06/19/2023 11:02am BP Systolic 132 mmHg BP Diastolic 60 mmHg Heart Rate 70 /min Height 68.5 inches 5'8.50 Weight 150.38 lb BMI (Body Mass Index) 22.5 kg/m2 Results Test Acquired Date Facility Test Result H/L Range N ote Calcium 06/14/2023 [facility] Calcium 9.3 mg/dL (8.6-10.5 ) 25Oh Vitamin D 06/14/2023 [facility]Oh Vitamin D 47.6 NG/ML (20-50) PTH, Intact 06/14/2023 [facility] PTH, Intact 63 pg/mL (15-65) 25Oh Vitamin D 12/20/2022 [facility] 25Oh Vitamin D 45.8 NG/ML (20-50) PTH, Intact 12/14/2022 [facility] PTH, Intact 85 pg/mL High (15-65) Basic Metabolic Panel 12/14/2022 [facility] Glucose 94 mg/dL (70-99) BUN 14 mg/dL (8-23) Creatinine 1.1 mg/dL High (0.5-1.0) Sodium 141 mmol/L (133-145) Potassium 4.2 mmol/L (3.6-5.2) Chloride 103 mmol/L (98-107) Bicarbonate 27 mmol/L (22-29) Anion Gap 11 (4-17) Calcium 9.7 mg/dL (8.6-10.5 ) Estimated GFR Creatinine 55 ML/MIN/1.7 3M2 1 Period & Volume 06/15/2022 [facility] Urine Collection Period 24 HRS Volume 2000 MLS [id number]-Yu-Fsjte 06/15/2022 [facility] Creatinine, Urine MG/DL 38.9 mg/dL Creatinine Ur GM/24HR 0.8 GM/24HR (0.72-1.5 ) Rvfkzfl-[id number] nt 06/15/2022 [facility] Calcium, Urine, MG/DL 2.2 mg/dL Calcium, Urine GM/24HR 0.04 GM/24HR Low (0.05-0.3 0) PTH, Intact 06/13/2022 [facility] PTH, Intact 73 pg/mL High (15-65) Albumin 06/13/2022 [facility] Albumin 4.6 GM/DL (3.4-4.8) Calcium 06/13/2022 [facility] Calcium 9.6 mg/dL (8.6-10.5 ) [...]
--- OUTSIDE RECORDS SUMMARY | 2025-05-10 17:45 | XMS_ITS ---
Author Organization [address] [place] [address] [place] [phone] Phone Care Team Providers Care Special Procedures Nurse Name Role Phone Omaira Mix MD Primary Care Provider [phone] Active Problems Problem Noted Date Diagnosed Date Asthma with COPD ([facility] V24, [facility] V28) 04/27 Venous insufficiency 08/08/2023 Assessment & Plan (09/02/2024 1:14 PM EST): Continue low-dose Lasix along with other behavioral strategies including elevation of legs while supine, consideration of compression stockings as tolerated, low- sodium diet-overall reasonably controlled (HFpEF) heart failure with p reserved ejection fraction ([facility] V24, [facility] V28) 08/08/2023 Overview (09/14/2024): -Triggered by alcohol most likely - reportedly alcholol free for 5 years. Assessment & Plan (09/02/2024 1:14 PM EST): Clinically euvolemic on exam without recent heart failure hospitalizations. Osteopenia 09/13/2022 CKD (chronic kidney disease) stage 3, GFR 30-59 ml/min ([facility] V24, [facility] V28) 09/06/2022 Asymptomatic coronary heart disease 06/18/2022 Overview (09/02/2024): -Status post ST elevation MT in 2008 with bare-metal stent to the RCA -Nuclear stress test from 2-2021 revealing for infarction but no areas of [...] bring up her heel pain with her home energy consultant. She will plan on doing this. Continue atorvastatin 40 mg at bedtime, baby aspirin. Osteoarthritis 06/18/2022 Anxiety 06/18/2022 Hyperparathyroidism ([facility] V24) 06/18/2022 PVC (premature ventricular contraction) 11/23/19 [...] metoprolol 100 mg daily Diverticulosis 11/16/2021 Cirrhosis ([facility] V24, [facility] V28) 04/19/2017 Alcohol abuse 02/21/2017 Obstructive sleep [...] anxiety and depressive disorder 06/03/2013 Overview (05/26/2024): [facility]: Dr David Sandoval, psych. Daniela Barron, therapist Hypertension 02/10/2008 Overview (09/02/2024): Assessment & Plan (09/02/2024 1:14 PM EST): Well-controlled on current regimen of furosemide 20 mg daily, metoprolol 100 mg daily, continue Hypercholesterolemia 02/10/2008 History of breast cancer Overview (09/21/2024): left mastectomy 2010 Current Oncology Plans No current plan information found. Past Plans No past plan information found. Radiation Treatments * No radiation treatments are documented for this patient in [facility]. Treatments may have been administered in another system. Lifetime Dose Tracking * Chemical Lifetime Dose Automatic Entry Manual Entr y Radiation (DLP) 105.51 mGy-cm 105.51 mGy-cm 0 mGy-cm CTDIvol 2.85 mGy 2.85 mGy 0 mGy Resolved Problems Problem Noted Date Diagnosed Date Resolved Date Hepatic encephalopathy (CMS/ HCC V24, CMS/HCC V28) 02/21/2017 09/21/2024 Old myocardial infarction 07/03/2013 Overview (05/26/2024): January 2009, [facility] in [place]. Dr Goins (sp?) Malignant tumor of breast (C MS/HCC V24, CMS/HCC V28) 03/29/2011 09/21/2024 Overview (05/26/2024): S/P left mastectomy 2010. Nncology: Dr. Armstrong . Surgeon: Invasive ductal carcinoma
--- OUTSIDE RECORDS SUMMARY | 2025-05-10 17:45 | XMS_ITS | Clinical Summary ---
Author Organization [address] [place] [address] [place] [phone] Phone Care Team Providers Care Skull Splitter Name Role Phone Omaira Mix MD Primary Care Provider [phone] Allergies Active Allergy Reactions Criticality Noted Date [...] breath activated Inhale by mouth if needed. 3 Active fluticasone propionate (FLONASE) 50 mcg/actuation nasal spray Administer 2 sprays into affected nostril(s) if needed. 4 Active potassium chloride (KLOR-CON) 10 mEq CR tablet TAKE 1 TABLET (10 MEQ TOTAL) BY MOUTH 1 (ONE) TIME EACH DAY DO NOT CRUSH, CHEW, OR SPLIT. 2 Active cholecalciferol (VITAMIN D-3) 50 mcg (2,000 unit) capsule Take 1 capsule (2,000 Units total) by mouth 1 (one) time each day. Active lactulose (CHRONULAC) solution TAKE 15 ML BY MOUTH DAILY 946 mL 6 4 Active mirtazapine (REMERON) 7.5 mg tablet TAKE 1 TABLET BY MOUTH EVERYDAY AT BEDTIME 30 tablet 5 5 Active aspirin 81 mg EC tablet TAKE 1 TABLET BY MOUTH EVERY DAY 30 tablet 5 5 Active metoprolol succinate (TOPROL-XL) 100 mg 24 hr tablet TAKE 1 TABLET BY MOUTH EVERY DAY 90 tablet 2 5 Active ezetimibe (ZETIA) 10 mg tablet TAKE 1 TABLET BY MOUTH EVERY DAY 90 tablet 3 5 Active atorvastatin (LIPITOR) 40 mg tablet TAKE 1 TABLET BY MOUTH EVERY DAY 90 tablet 5 Active omeprazole (PriLOSEC) [address] capsule Take 1 capsule (20 mg total) by mouth 1 (one) time each day. Do not crush or chew. 90 each 3 5 03/23/20 26 Active memantine (NAMENDA) 5 mg tablet take 1 tablet by mouth 2 times a day for 90 days 5 Active calcium carbonate 1,500 mg (600 mg elemental calcium) tablet Take 1 tablet (1,500 mg total) by mouth 1 (one) time each day. 5 Active furosemide (LASIX) 20 mg tablet Take 1 tablet (20 mg total) by mouth 1 (one) time each day. 90 tablet 1 5 Active Active Problems Problem Noted Date Diagnosed Date Asthma with COPD ([facility] V24, [facility] V28) 04/27 Venous insufficiency 08/08/2023 Assessment & Plan (09/02/2024 1:14 PM EST): Continue low-dose Lasix along with other behavioral strategies including elevation of legs while supine, consideration of compression stockings as tolerated, low- sodium diet-overall reasonably controlled (HFpEF) heart failure with p reserved ejection fraction ([facility] V24, [facility] V28) 08/08/2023 Overview (09/14/2024): -Triggered by alcohol most likely - reportedly alcholol free for 5 years. Assessment & Plan (09/02/2024 1:14 PM EST): Clinically euvolemic on exam without recent heart failure hospitalizations. Osteopenia 09/13/2022 CKD (chronic kidney disease) stage 3, GFR 30-59 ml/min ([facility] V24, [facility] V28) 09/06/2022 Asymptomatic coronary heart disease 06/18/2022 Overview (09/02/2024): -Status post ST elevation [place] in 2008 with bare-metal stent to the [...] bring up her heel pain with her patient care technician. She will plan on doing this. Continue atorvastatin 40 mg at bedtime, baby aspirin. Osteoarthritis 06/18/2022 Anxiety 06/18/2022 Hyperparathyroidism ([facility] V24) 06/18/2022 PVC (premature ventricular [...] anxiety and depressive disorder 06/03/2013 Overview (05/26/2024): [facility]: Dr David Sandoval, psych. Daniela Barron, [...] 07/03/2013 Overview (05/26/2024): January 2009, [facility] in [place]. Dr Goins (sp?) Malignant tumor of breast (C TX/HCC V24, CMS/HCC V28) 03/29/2011 09/21/2024 Overview (05/26/2024): S/P left mastectomy 2010. Nncology: Dr. Armstrong . Surgeon: Invasive ductal carcinoma Encounters Date Type Department Care Team Description 04/19/2025 3:38 PM EDT - 04/19/2025 11:59 PM EDT Hospital Encounter Radiology Department - [address] [phone] History of breast cancer; Encounter for screening mammogram for malignant neoplasm of breast Discharge Disposition: Home or Self Care 03/30/2025 1:00 PM EDT Office Visit Gastroenterology [facility] [address] [facility] 175 [facility] [address] [place] [phone] Maria Teresa Ureña NP Liver disease, chronic, due to alcohol ([facility] V24) (Primary Dx); Gastroesophageal reflux disease without esophagitis; Tobacco use disorder; History of gallstones; Alcohol use disorder in remission 03/26/2025 10:20 AM EDT Office Visit [facility] [address] [facility] [address] [place] [phone] Bobbi Salcido MD Asymptomatic coronary heart disease (Primary Dx); Chronic heart failure with preserved ejection fraction ([facility] V24, [facility] V28); Primary hypertension; Hypercholesterolemia 03/24/2025 [facility] [address] [place] [phone] Nerissa Saleh MD 03/22/2025 1:00 PM EDT Office Visit Adult Medicine [facility] - [address] [phone] Tiara Muller PA Encounter for annual wellness visit (AWV) in Medicare patient (Primary Dx); Need for vaccination against Streptococcus pneumoniae; Smoker; Osteopenia, unspecified location; Obstructive sleep apnea syndrome; Primary hypertension; Mixed anxiety and depressive disorder; Hyperparathyroidism ([facility] V24); Hypercholesterolemia; Asymptomatic coronary heart disease; Chronic heart failure with preserved ejection fraction ([facility] V24, [facility] V28) 03/06/2025 7:46 AM EDT - 03/06/2025 11:59 PM EDT Hospital Encounter [facility] CT Scan [address] [place] [address] Encounter for screening for malignant neoplasm of respiratory organs; Nicotine dependence, cigarettes, uncomplicated Discharge Disposition: Home or Self Care 03/04/2025 Telephone [facility] - [facility] [address] [facility] [address] [place] [address] Bobbi Salcido MD 02/11/2025 Telephone Lung Screening Program - [place] [address] [facility] [address] [place] [address] Hafsa Cabezas MA from Last 3 Months Immunizations Name Administration [...] (Prevnar 13, PCV13) 2mo and older 07/15/2015 Pneumococcal conjugate 20 va lent (Prevnar 20, PCV 20) 2mo and older 03/22/2025 Td, Unspecified 07/05/2009 Tdap Tetanus diptheria acell [...] History of left breast cancer 2009 : ER/OH negative Diverticulosis Cirrhosis of liver ([facility] V24, [facility] V28) Osteopenia 09/13/2022 Asthma with COPD ([facility] V2 4, [facility] V28) 05/15/2024 Hyperparathyroidism ([facility] V24) 06/18/2022 CKD (chronic kidney disease) stage 3, GFR 30-59 ml/min ([facility] V24, [facility] V28) 09/06/2022 Obstructive sleep apnea syndrome 06/03/2013 UNTREATED (Aug 2022) Alcohol abuse 02/21/2017 Asymptomatic coronary heart disease 06/18/2022 -Status post ST elevation [place] in 2008 with bare-metal stent to the [...] heart failure with p reserved ejection fraction ([facility] V24, [facility] V28) 08/08/2023 -Triggered by alcohol most l ikely - reportedly alcholol free for 5 years. History of breast cancer left ma stectomy 2010; right breast lumpectomy 2022 Family History Medical History Relation Name Comments Cancer Brother 1 Schizophrenia Brother 2 Heart attack Brother 3 Cancer Father Other: kaposi sarcoma Father's side Breast cancer Mother [place] Colon cancer Neg Hx Ovarian cancer Neg [...] drink = 0.6 oz pur e alcohol) Housing Instability Answer Date Recorde d Are you worried that in the next 2 months you may not have stable housing? No 03/22/2025 Food Access & Nutrition Answer Date Rec orded Do you have access to a vari ety of food including fruits and vegetables? Yes 03/22/2025 Access to Healthcare Answer Date Record ed Within the last 3 months, ho w many times did you visit the emergency department for your medical care? 0 03/22/2025 Health Literacy Answer Date Recorded How often do you need to hav e someone help you when you read instructions, pamphlets, or other written material from your doctor or pharmacy? Never 03/22/2025 Caregiver: How often do you need to have someone help you when you read instructions, pamphlets, or other written material from your doctor or pharmacy? Not on file 03/22/2025 Financial Risk Answer Date Recorded How hard is it for you to pa y for the very basics like food, housing, medical care, and air conditioning / heating? Not very hard 03/22/2025 Transportation Answer Date Recorded Has the lack of transportati on kept you from meetings, work, or from getting things needed for daily living? No Has the lack of transportati on kept you from medical appointments or from getting medications? No 03/22/2025 Social Isolation Answer Date Recorded How often do you feel lonely or isolated from th ose around you? Never 03/22/2025 Food Risk Answer Date Recorded Within the past 12 months we worried whether our food would run out before we got money to buy more. Never true 03/22/2025 Within the past 12 months th e food we bought just didn't last and we didn't have money to get more. Never true 03/22/2025 Dependent Care Answer Date Recorded Do you need help finding or paying for care for your loved ones. For example, child care nurse or elderly care for an older adult? No 03/22/2025 Education Answer Date Recorded Do you think completing more education or training, like finishing a GED, going to college, or learning a trade, would be helpful for you? N/A 03/22/2025 Employment and Income Answer Date Recor ded During the last four weeks, have you been actively looking for work? No 03/22/2025 Living Situation Answer Date Recorded What is your living situation? 0 03/22/2025 Comments No Sex and Gender Information Value Date Recorded Sex Assigned at Not on file Legal Sex Female 1:45 PM EST Gender Identity Not on file Sexual Orientation Not on file Obstetrics History Para Term AB IAB SAB Ectopic Multiple Livin g Live Births 0 0 0 0 Last Filed Vital Signs Vital Sign Reading Time Taken Comments Blood Pressure 142/76 03/30/2025 12:53 PM EDT Pulse 65 03/30/2025 12:53 PM EDT Temperature 35.5 C (95.9 F) 03/22/2025 1:13 PM EDT Respiratory Rate 14 03/22/2025 1:13 PM EDT Oxygen Saturation 97% 03/30/2025 12:53 PM EDT Inhaled Oxygen Concentration - - Weight 64.5 kg (142 lb 3.2 oz) 03/30/2025 12:53 PM EDT Height 174 cm (5' 8.5 ) 03/30/2025 12:53 PM EDT Body Mass Index 21.31 03/30/2025 12:53 PM EDT Plan of Treatment Upcoming Encounters Date Type Department Care Team (Late st Contact Info) Description 05/14/2025 10:00 AM EDT Consult Adult Medicine [address] [phone] Omaira Mix MD [address] [place], [place] 06/08/2025 1:00 PM EDT Office Visit [facility] Care [address] [phone] Nerissa Saleh MD [address] [place] [address] 09/22/2025 2:15 PM EST Office Visit Adult Medicine [facility] [address] [place], [place] [phone] Omaira Mix MD [address] [place], [place] 10/01/2025 1:00 PM EST Office Visit Gastroenterology [facility] [address] [facility] 175 [facility] [address] [place] [phone] Maria Teresa Ureña, ALDO 175 [facility] [address] [place] [address] Health Maintenance Due Date Last Done Comments Hepatitis A Vaccines (1 of 2 - Risk 2-dose series) 1974 Hepatitis B Vaccines (1 of 3 - Risk 3-dose series) 2015 RSV Immunization Adult Patients (1 - Risk 60-74 years 1-dose series) 2015 COVID-19 Vaccine (7 - Moderna risk season) 2025 06/19/2024, 06/11/2023, 07/18/2022, Additional history exists Influenza Vaccine (#1) 2025 , 06/11/2023, 06/27/2022, Additional history exists Hypertension/CHF/CAD Annual BMP Blood Test 02/27/2026 02/27/2025, 02/27/2025, 09/21/2024, Additional history exists Falls Risk Assessment 03/22/2026 03/22/2025 , 03/22/2025, 09/16/2023 Medicare Annual Wellness Visit 03/22/2026 03/22/2025 Social Influencers of Health Screening 03/22/2026 03/22/2025 Colorectal Cancer Screening: Colonoscopy 12/06/2026 12/06/2021 Breast Cancer Screening 04/19/2027 04/19/20, 12/17/2023, 07/18/2019, Additional history exists DTaP,Tdap,and Td Vaccines (3 - Td or Tdap) 12/18/2027 12/17/2017, 07/05/2009 Cholesterol Screening (Lipid Panel) 09/21/2029 09/21/2024, 04/02/2024 Osteoporosis Screening (Bone Density Screening) 09/13/2032 09/13/2022 Hepatitis C Screening Completed 02/08/2017 Zoster Vaccines Completed 11/15/2022, 07/27, 06/27/2022 Depression Screening Completed 03/22/2025 Pneumococcal Vaccine: 50+ Years Completed 03/22/2025, 07/15/2015 [...] Procedure Name Priority Date/Time Associated Diagnosis Comments MG MAMMO DIGITAL SCREENING W RIAN BILAT Routine 04/19/2025 3:50 PM EDT History of breast cancer Encounter for screening mammogram for malignant neoplasm of breast CT LUNG SCREENING Routine 03/06/2025 8:1 6 AM EDT Encounter for screening for malignant neoplasm of respiratory organs Nicotine dependence, cigarettes, uncomplicated COMPREHENSIVE METABOLIC PANEL Routine 09/21/2024 1:31 PM [...] PM EST Encounter for screening for osteoporosis from Last 3 Months or Most Recently Relevant to Health Maintenance Results * MG Mammo Digital Screening w Rian bilat (04/19/2025 3:50 PM EDT) Anatomical Region Laterality Modality Breast Bilateral Mammography 04/21/2025 3:08 PM EDT Impressions 04/21/2025 3:27 PM EDT No mammographic evidence of malignancy in the right breast. BI-RADS CATEGORY: 2 - BENIGN RECOMMENDATION: Screening right mammogram is recommended in 1 year. Mammo Location: [facility], [address] [place] [address], [address], . -------- FINAL REPORT -------- Dictated By: Delicia Sapp Dictated Date: 04/21/2025 15:08 ET Assigned Physician: Delicia Sapp Reviewed and Electronically Signed By: Delicia Sapp Signed Date: 04/21/2025 15:27 ET Workstation ID: [id number] Transcribed By: Self Edit Transcribed Date: 04/21/2025 15:08 ET Narrative 04/21/2025 3:27 PM EDT Unilateral right breast screening mammogram. CLINICAL: 70 years old, Female, routine annual exam. Status post left mastectomy for breast cancer. COMPARISON: Prior mammogram from 12/17/2023. TECHNIQUE: MLO and CC views of the right breast were obtained digitally with 2-D C views and 3-D mammogram (digital breast tomosynthesis). Computer-aided detection was utilized in evaluation of this exam (CAD). FINDINGS: Stable coarse calcifications in the upper medial right breast with some biopsy clip are stable. There is stable scarring in the inferomedial right breast. There is no evidence of new suspicious mass or architectural distortion. No new worrisome calcifications are evident. There has been no significant change from prior exam(s). BREAST DENSITY: B - There are scattered areas of fibroglandular density. Procedure Note Delicia Sapp MD - 04/21/2025 Unilateral right breast screening mammogram. CLINICAL: 70 years old, Female, routine annual exam. Status post leftmastectomy for breast cancer. COMPARISON: Prior mammogram from 12/17/2023. TECHNIQUE: MLO and CC views of the right breast were obtained digitallywith 2-D C views and 3-D mammogram (digital breast tomosynthesis).Computer-aided detection was utilized in evaluation of this exam (CAD). FINDINGS: Stable coarse calcifications in the upper medial right breast with somebiopsy clip are stable. There is stable scarring in the inferomedialright breast. There is no evidence of new suspicious mass or architectural distortion.No new worrisome calcifications are evident. There has been nosignificant change from prior exam(s). BREAST DENSITY: B - There are scattered areas of fibroglandular density. IMPRESSION: No mammographic evidence of malignancy in the right breast. BI-RADS CATEGORY: 2 - BENIGN RECOMMENDATION: Screening right mammogram is recommended in 1 year. Mammo Location: [facility], [address] [place] [address], [phone], . -------- FINAL REPORT -------- Dictated By: Delicia Sapp Dictated Date: 04/21/2025 15:08 ET Assigned Physician: Delicia Sapp Reviewed and Electronically Signed By: Delicia Sapp Signed Date: 04/21/2025 15:27 ET Workstation ID: [id number] Transcribed By: Self Edit Transcribed Date: 04/21/2025 15:08 ET Nerissa Saleh MD IMG BI PROCEDURES Final Result * CT Lung Screening (03/06/2025 8:16 AM EDT) Anatomical Region Laterality Modality Chest Computed Tomogra phy 03/09/2025 2:41 PM EDT Impressions 03/09/2025 2:50 PM EDT Impression: No suspicious developing pulmonary nodule. No significant change. Lung-RADS Category: Lung-RADS 2: Nodule(s) with benign appearance or behavior. Continue annual screening with Low Dose Chest CT in 12 months. [place] ([id number]) -------- FINAL REPORT -------- Dictated By: Tari Crisostomo Dictated Date: 03/09/2025 14:41 ET Assigned Physician: Tari Crisostomo Reviewed and Electronically Signed By: Tari Crisostomo Signed Date: 03/09/2025 14:50 ET Workstation ID: [id number] Transcribed By: Self Edit Transcribed Date: 03/09/2025 14:41 ET Narrative 03/09/2025 2:50 PM EDT History: 69 year-old 51 pack-year current smoker, asymptomatic, for lung cancer screening. Comparison: 03/05/24 Technique: Helical volumetric imaging of the thorax was performed, using low- dose technique, without IV contrast. DLP: 105.51 mGy/cm CTDIvol: 2.85 mGy [employer] to transform [employer] Iterative reconstruction technique Findings: Lungs and Airways: The trachea and central bronchial tree remain patent. Mucous plugging is seen at the subsegmental level in the right lower lobe. Patchy centrilobular emphysema is again noted. Thin curvilinear bandlike opacities at the lung bases are consistent with subsegmental atelectasis. Rare subcentimeters groundglass nodules and few scattered sub-4 mm solid, noncalcified nodules are without significant change. No suspicious developing pulmonary nodule is seen. Pleura: No pleural or pericardial effusions are seen. Base of neck, mediastinum and heart: The heart remains normal in size. Intramural fat deposition is again seen within the left ventricle. Moderate coronary artery calcification is again noted. No developing thoracic lymphadenopathy is seen. Soft tissues: Left mastectomy sequela are again noted. Abdomen: This study was performed without contrast and with lower than standard dose. These factors reduce the sensitivity for detection of small lesions in the upper abdomen. No significant abnormality is seen. Procedure Note Tari Crisostomo MD - 03/09/2025 History: 69 year-old 51 pack-year current smoker, asymptomatic, for lungcancer screening. Comparison: 03/05/24 Technique: Helical volumetric imaging of the thorax was performed, usinglow-dose technique, without IV contrast. DLP: 105.51 mGy/cm CTDIvol: 2.85 mGy [employer] Iterative reconstruction technique Findings: Lungs and Airways: The trachea and central bronchial tree remain patent.Mucous plugging is seen at the subsegmental level in the right lower lobe.Patchy centrilobular emphysema is again noted. Thin curvilinear bandlikeopacities at the lung bases are consistent with subsegmentalatelectasis. Rare subcentimeters groundglass nodules and few scattered sub-4 mm solid,noncalcified nodules are without significant change. No suspicious developing pulmonary nodule is seen. Pleura: No pleural or pericardial effusions are seen. Base of neck, mediastinum and heart: The heart remains normal in size.Intramural fat deposition is again seen within the left ventricle.Moderate coronary artery calcification is again noted. No developingthoracic lymphadenopathy is seen. Soft tissues: Left mastectomy sequela are again noted. Abdomen: This study was performed without contrast and with lower thanstandard dose. These factors reduce the sensitivity for detection of smalllesions in the upper abdomen. No significant abnormality is seen. IMPRESSION: Impression: No suspicious developing pulmonary nodule. No significant change. Lung-RADS Category: Lung-RADS 2: Nodule(s) with benign appearance orbehavior. Continue annual screening with Low Dose Chest CT in 12 months. [employer] [place] ([id number]) -------- FINAL REPORT -------- Dictated By: Tari Crisostomo Dictated Date: 03/09/2025 14:41 ET Assigned Physician: Tari Crisostomo Reviewed and Electronically Signed By: Tari Crisostomo Signed Date: 03/09/2025 14:50 ET Workstation ID: [id number] Transcribed By: Self Edit Transcribed Date: 03/09/2025 14:41 ET us Anna Marie Bai MD [facility] PROCEDURES Final Result * Lipid panel with reflex to direct LDL (09/21/2024 1:31 PM EST) Cholesterol 134 0 - 200 mg/dL LAB CHEMISTRY METHOD 09/21/2024 5:44 PM EST [facility] Triglycerides 74 0 - 150 mg/dL LAB CHEMISTRY METHOD 09/21/2024 5:44 PM EST [facility] HDL 51 >=40 mg/dL LAB CHEMISTRY METHOD 09/21/2024 5:44 PM EST [facility] LDL Calculated 68 0 - 100 mg/dL LAB CHEMISTRY METHOD 09/21/2024 5:44 PM [facility] VLDL Cholesterol Bruno 14.8 mg/dL LAB CHEMISTRY METHOD 09/21/2024 5:44 PM EST [facility] Non HDL Chol. (LDL+VLDL) 83 <145 mg/dL LAB CHEMISTRY METHOD 09/21/2024 5:44 PM EST [facility] Chol/HDL Ratio 2.6 0.0 - 4.4 LAB CHEMISTRY METHOD 09/21/2024 5:44 PM EST [facility] Blood Venous blood specimen / Unknown Venipuncture / Unknown 09/21/2024 1:31 PM EST 09/21/2024 1:31 PM EST us Omaira Mix MD LAB BLOOD ORDERABLES Final Resul t [facility] [address] [place] [address], * JANENE DEXA AXIAL SKELETON (09/13/2022 1:35 PM EST) Anatomical Region Laterality Modality Mammography 09/13/2022 12:5 7 PM EST Narrative 09/13/2022 1:35 PM EST [facility] Diagnostic Imaging Department [address] [place] [address] Patient: SOLOMON MARROQUIN/Age/Sex: 1955 - 67 - F Unit#: [id number] Location/Status: SPDIMAM/REG CLI Mnemonic[facility] Ordering Physician: TIARA MULLER PA-C [facility] Dexa Axial Skeleton - 09/13/22 - 9 History: Low estrogen state due to menopause. History of breast carcinoma. Left total hip arthroplasty February,. Findings: Bone densitometry is performed utilizing dual energy x-ray absorptiometry (DXA) in the [employer] unit. The lumbar spine and right proximal [...] 9.0 percent Hip 1.0 percent. IMPRESSION: Osteopenia. [id number] Dictating Physician: TARI CRISOSTOMO MD Electronically Signed by: TARI CRISOSTOMO MD Dic Date/Time: 09/13/22 1333 Sign date/Time: 09/13/22 1335 Procedure Note Tari Crisostomo MD - 09/27/2023 [facility] Diagnostic Imaging Department [address] [place] [address] Patient: SOLOMON MARROQUIN/Age/Sex: 1955 67 - F Unit#: [id number] Location/Status: SPDIMAM/REG CLI Mnemonic/Ordering Site: [facility] Ordering Physician: TIARA MULLER PA-C [facility] Dexa Axial Skeleton - 09/13/22 - 1329 History: Low estrogen state due to menopause. History of breast carcinoma.Left total hip arthroplasty February,. Findings: Bone densitometry is performed utilizing dual energy x-ray absorptiometry(DXA) in the [employer] unit. The lumbar spine and right proximal [...] Osteoporotic 9.0percent Hip 1.0 percent. IMPRESSION: Osteopenia. 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
== END 2025-05-10 13:36 | disposition home or self-care (01) ==
LOC: HO.HSM 12:54
PROVIDERS: PCP Internal Medicine; Visit Provider Psychiatry & Neurology Neurology
DX: G30.1 Alzheimer's disease with late onset (principal); F02.A4 Dementia in other diseases classified elsewhere, mild, with anxiety
CPT/HCPCS: 99214

== ENCOUNTER → 2025-05-10 12:53 | Outpatient (BNVA) | payer MEDICARE, MEDICAID, SELFPAY | PROVIDERS: PCP Internal Medicine; Visit Provider Psychiatry & Neurology Neurology | DX: G30.1 Alzheimer's disease with late onset (principal); F02.A4 Dementia in other diseases classified elsewhere, mild, with anxiety | CPT/HCPCS: 99212 ==